=== PATIENT | male | born 1940 | race Caucasian/White ===

== ENCOUNTER 2024-02-27 09:00 | Day surgery (SDC) | payer OTHER, BC ==
[2024-02-27 09:49] LABS: MPV 9.4 fL (7.6-11.3); Platelets 242 thou/uL (152-406)
[2024-02-27 09:54] LABS: PT Prothrombin Time 11.5 SECONDS (9.5-12.5); PTT, Activated Partial Thromb 32.6 SECONDS (24.3-36.9); Protime INR 1.05
[2024-02-27] MEDS: METOPROLOL TAR 50 MG TAB PO ONE (10:25)
[2024-02-27] MEDS: DIAZEPAM 5 MG TABLET ONE (10:37)
[2024-02-27 12:33] VITALS: BMI 33.6
[2024-02-27 13:17] LABS: CSF Glucose 55 mg/dL (40-70)
[2024-02-27 14:25] VITALS: BP 132/83; TEMP 97.2; O2SAT 95
[2024-02-27 15:55] LABS: Appearance CLEAR (CLEAR); Body Fluid Source CSF; Color of Supernate Not Xanthochromic (Not Xantho); Color of fluid Colorless (COLORLESS); Tube # #2
[2024-02-27 15:56] LABS: Body Fluid WBC 1 /mm^3
--- NOTE | 2024-02-28 09:19 | RAD REPORT ---
EXAM DESCRIPTION: RAD - Lumbar Puncture For Dx - 02/27/2024 1:31 pm CLINICAL HISTORY: Dementia/memory loss COMPARISON: None FINDINGS: The risks, benefits and alternatives to the procedure were explained to the patient and in formed consent obtained. The patient was placed prone into the fluoroscopy suite. The skin and subcutaneous tissues were anest hetized with lidocaine. Under fluoroscopic guidance a 22 gauge spinal needle was advanced into the th ecal sac at L2-3 level. 12 cc of CSF was removed and sent to the lab. Patient experienced no immediate complication Fluoroscopy time 0.6 minutes. Zero fluoroscopic spot images obtained IMPRESSION: Lumbar puncture
== END 2024-02-27 14:13 | disposition home or self-care (01) ==
LOC: RAD 09:00 → DS 14:13
PROVIDERS: ATTEND Psychiatry & Neurology Neurology with Special Qualifications in Child Neurology
PROC: 009U3ZX Drainage of Spinal Canal, Percutaneous Approach, Diagnostic (ICD-10-PCS; principal; 2024-02-27)
PROC: B01BZZZ Fluoroscopy of Spinal Cord (ICD-10-PCS; 2024-02-27)
DX: G30.9 Alzheimer's disease, unspecified (principal); I10 Essential (primary) hypertension; E11.9 Type 2 diabetes mellitus without complications; I51.9 Heart disease, unspecified; J84.10 Pulmonary fibrosis, unspecified; J44.9 Chronic obstructive pulmonary disease, unspecified
CPT/HCPCS: 36415; 62328; 77003; 82542; 82945; 84157; 85049; 85610; 85730; 89050

== ENCOUNTER 2024-04-18 09:48 | Inpatient (IN) | payer OTHER, BC ==
--- OUTSIDE RECORDS SUMMARY | 2024-04-18 11:10 | XMS REPORT | Continuity of Care Document ---
Author Name Unknown Address [address] [facility] [address] [place] [address] [facility] Address [address] [facility] [address] [place] [address] Care Team Providers Care Paper Counter Name Role Phone No , Pcp Primary Care Physician Unavailab Allyson Chavez Attending Clinician Unavail able BAYRON SOLO Attending Clinician Unavailable BAYRON SOLO Attending Clinician Unavailable MINA MACDONALD Attending Clinician Unavailable RADIOLOGY Attending Clinician Unavailable Radiology Attending Clinician Unavailable Katlyn HERNANDEZ, Yuriy Hancock Attending Clinician Unavail able Vernon LINDO, Johnny Cesar Attending Clinician [phone] Monisha Giron MD Attending Clinician [phone] MONISHA GIRON Attending Clinician Unavailabl e BAYRON SOLO Admitting Clinician Unavailable KAMALJIT LAMAR Admitting Clinician Unavailab Monisha Hdz MD Admitting Clinician [phone] MONISHA GIRON Admitting Clinician Unavailabl e Payers Payer Name Policy Type Policy Number Effective Date Expirati on Date Source MEDICARE PART A \\T\\ B [id number] 2007 00:00:00 MEDICARE PART A AND B [id number] 2009 00:00:00 [facility] 6 [id number] [facility] Problems Condition Name Condition Details Condition Category Status Onset Date Resolution Date Last Treatment Date Treating Clinician Comments Source Chronic deep vein thrombosis (DVT) of popliteal vein of right lower extremity Chronic deep vein thrombosis (DVT) of popliteal vein of right lower extremity Disease Active 3-04 00:00: 00 [facility] Right leg swelling Right leg swelling Disease Active 3-04 00:00: 00 [facility] Typical atrial flutter Typical atrial flutter Disease Active 2-14 00:00: 00 [facility] Recurrent falls Recurrent falls Disease Active 1-17 00:00: 00 [facility] Elevated brain natriureti c peptide (BNP) level Elevated brain natriureti c peptide (BNP) level Disease Active 1-17 00:00: 00 [facility] Dyslipidem ia Dyslipidem ia Disease Active 1-17 00:00: 00 [facility] Elevated brain natriureti c peptide (BNP) level Elevated brain natriureti c peptide (BNP) level Disease Active 1-17 00:00: 00 [facility] Chronic diastolic heart failure Chronic diastolic heart failure Disease Active 1-17 00:00: 00 [facility] Atrial flutter with rapid ventricula r response Atrial flutter with rapid ventricula r response Disease Active 1-16 00:00: 00 [facility] [id number] Other obesity due to excess calories Problem [facility] 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 Problem [facility] [id number] Other chronic pain Problem [facility] [id number] Essential tremor Problem [facility] [id number] Non-compli ance with treatment Problem [facility] [id number] At high risk for falls Problem [facility] [id number] Gait instabilit y Problem [facility] 32164179 Pulmonary fibrosis Problem [facility] [id number] History of prostate cancer Problem [facility] [id number] Chronic pain syndrome Problem [facility] [id number] Essential hypertensi on Problem [facility] [id number] CORINE (obstructi ve sleep apnea) Problem [facility] [id number] Senile purpura Problem [facility] [id number] Overflow incontinen ce of urine Problem [facility] 37882638 Moderate dementia with mood disturbanc e, unspecifie d dementia type Problem [facility] [id number] Chronic deep vein thrombosis (DVT) of proximal vein of right lower extremity Problem [facility] 820629150 BMI 34.0-34.9, adult Problem [facility] 16840575 Intention tremor Problem [facility] [id number] Paroxysmal atrial fibrillati on Problem [facility] 149825674 Mixed hyperlipid emia Problem [facility] 859295933 Actinic keratosis Problem [facility] 32757813 Age-relate d cataract of both eyes, unspecifie d age-relate d cataract type Problem [facility] 10530661 Bilateral hearing loss, unspecifie d hearing loss type Problem [facility] 39924598 Vitreous degenerati on, unspecifie d laterality Problem [facility] 191837229 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 Problem [facility] 72745784 Opioid use Problem [facility] 49386086 COPD mixed type Problem [facility] 91234548 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 Problem [facility] 46729670 Vitamin D insufficie ncy Problem [facility] [id number] Osteoporos is, postmenopa usal Problem [facility] 13026948 LAMINE (generaliz ed anxiety disorder) Problem [facility] [id number] Macrocytos is Problem [facility] 55599724 Type 2 diabetes mellitus with diabetic cataract, without long-term current use of insulin Problem [facility] [id number] Other secondary osteoarthr itis of both knees Problem [facility] [id number] Chronic anticoagul ation Problem [facility] 810013042 Gastroesop hageal reflux disease without esophagiti s Problem [facility] 33210272 Pulmonary hypertensi on Problem [facility] Allergies, Adverse Reactions, Alerts Allergy Name Allergy Type Status Severity Reaction(s) Onset Date Inactive Date Treating Clinician Comments Source NO KNOWN ALLERGIE S Drug Class Active [facility] Social History Social Habit Start Date Stop Date Quantity Comments Source Sexual orientation [facility] History of tobacco use Cigarette Smoker [facility] History of Social function 2023-11-17 00:00:00 2023-11-17 00:00:00 [facility] Tobacco use and exposure 2023-11-17 00:00:00 2023-11-17 00:00:00 Smokeless tobacco non-user [facility] Sex assigned at 1940 00:00:00 1940 00:00:00 [facility] Smoking Status Start Date Stop Date Source Ex-smoker 2023-11-17 00:00:00 2023-11-17 00:00:00 [facility] Never smoked tobacco [facility] Medications Ordered Medication Name Filled Medication Name Start Date Stop Date Current Medication? Ordering Clinician Indication Dosage Frequency Signature (SIG) Comments Components Source hydroCHLORO thiazide 25 MG hydroCHLORO thiazide 25 MG 02-16 00:00: 00 No 1{table t_in_ e_morni ng} QD hydroCHLOR Othiazide 25 MG DULoxetine HCl 60 MG DULoxetine HCl 60 MG 02-16 00:00: 00 No 1{capsu le} QD DULoxetine HCl 60 MG busPIRone HCl 10 MG busPIRone HCl 10 MG 02-16 00:00: 00 No 1{table t} BID busPIRone HCl 10 MG Ozempic (0.25 or 0.5 MG/DOSE) 2 MG/3ML Ozempic (0.25 or 0.5 MG/DOSE) 2 MG/3ML 02-16 00:00: 00 No Ozempic (0.25 or 0.5 MG/DOSE) 2 MG/3ML Xarelto 10 MG tablet 11-16 09:57: 02 Yes 1 (one) time each day at the same time. [facility] cefdinir 300 mg capsule 10-29 10:50: 14 Yes as directed Orally [facility] Guaifenesin 1,200 mg tablet 10-29 10:50: 14 Yes 1 tablet as needed Orally every 12 hrs [facility] propranoloL 40 mg tablet 10-03 13:40: 24 Yes 40mg Take 1 tablet by mouth in the morning and 1 tablet in the evening. [facility] metFORMIN 500 mg tablet 10-03 13:40: 24 Yes 500mg Take 1 tablet by mouth in the morning. [facility] potassium chloride 10 mEq CR tablet 10-03 13:40: 24 Yes 10meq Take 1 tablet by mouth in the morning. [facility] losartan 25 mg tablet 10-03 13:40: 24 Yes 25mg Take 1 tablet by mouth in the morning. [facility] pregabalin 75 mg capsule 10-03 13:40: 24 Yes 75mg Take 1 capsule by mouth in the morning and 1 capsule in the evening. [facility] furosemide (LASIX) 40 mg tablet 10-03 13:40: 24 Yes 20mg Take 0.5 tablets by mouth in the morning. [facility] pantoprazol e (PROTONIX) 20 mg EC tablet 10-03 13:40: 24 Yes 20mg Take 1 tablet by mouth in the morning. [facility] benzonatate 200 mg capsule 10-03 13:40: 24 Yes 200mg Take 1 capsule by mouth in the morning. [facility] simvastatin 20 mg tablet 10-03 13:40: 24 Yes 20mg Take 1 tablet by mouth at bedtime. [facility] donepezil HCl (DONEPEZIL ORAL) 10-03 13:40: 24 Yes 5mg Take 5 mg by mouth in the morning. [facility] glucosamine /chondroiti n/C/Tripp (GLUCOSAMIN E 1500 COMPLEX ORAL) 10-03 13:40: 24 Yes 1{tbl} Take 1 tablet by mouth in the morning. [facility] [place]-3-DHA -EPA-Fish Oil (FISH OIL) 1,000 mg (120 mg-180 mg) Cap 10-03 13:40: 24 Yes 1{capsu le} Take 1 capsule by mouth in the morning. [facility] metoprolol tartrate (LOPRESSOR) tablet 50 mg 10-03 02:00: 00 Yes 50mg 50 mg, Oral, BID, First dose (after last modificati on) on Fri10/02/23 at 2000, Until Discontinu ed, Routine [facility] metoprolol tartrate (LOPRESSOR) tablet 25 mg 10-02 15:45: 00 10-02 14:57 :00 No 25mg 25 mg, Oral, ONCE, 1 dose, On Fri10/02/23 at 0945, Routine [facility] losartan (COZAAR) tablet 25 mg 10-02 15:00: 00 Yes 25mg 25 mg, Oral, DAILY, First dose on Fri10/02/23 at 0900, Until Discontinu ed, Routine [facility] donepeziL (ARICEPT) tablet 5 mg 10-02 15:00: 00 Yes 5mg 5 mg, Oral, DAILY, First dose on Fri10/02/23 at 0900, Until Discontinu ed [facility] rivaroxaban (XARELTO) 10 mg tablet 10-02 12:20: 49 10-02 00:00 :00 No 10mg Take 1 tablet by mouth in the morning. [facility] atorvastati n (LIPITOR) tablet 10 mg 10-02 03:00: 00 Yes 10mg 10 mg, Oral, QHS, First dose on Fri10/01/23 at 2100, Until Discontinu ed [facility] budesonide- formoteroL (SYMBICORT) 160-4.5 mcg/actuati on inhaler 2 Puff 10-02 02:00: 00 Yes 2{puff} 2 Puff, Inhalation , BID, First dose on Fri10/01/23 at 1999, Until Discontinu ed, Routine [facility] predniSONE (DELTASONE) tablet 20 mg 10-02 02:00: 00 Yes 20mg 20 mg, Oral, BID, First dose on Fri10/01/23 at 1999, Until Discontinu ed, Routine [facility] apixaban (ELIQUIS) tablet 5 mg 10-02 02:00: 00 10-03 00:29 :46 No 5mg 5 mg, Oral, BID, First dose on Fri10/01/23 at 1999, Until Discontinu ed, Routine
Indicatio ns: Non-Valvul ar Atrial Fibrillati on [facility] acute hospital budesonide- formoteroL 160-4.5 mcg/actuati on inhaler 10-02 00:00: 00 Yes [id number] 2{puff} Inhale 2 Puffs in the morning and 2 Puffs in the evening. [facility] metoprolol tartrate 50 mg tablet 10-02 00:00: 00 Yes [id number] 50mg Take 1 tablet by mouth in the morning and 1 tablet in the evening. [facility] albuterol 90 mcg/actuati on inhaler 10-02 00:00: 00 Yes [id number] 2{puff} Inhale 2 Puffs every 6 (six) hours as needed for Wheezing or Shortness of Breath. [facility] Guaifenesin 1,200 mg tablet 10-02 00:00: 00 10-17 05:59 :00 No [id number] 1200mg Take 1 tablet by mouth in the morning and 1 tablet in the evening. Do all this for 14 days. [facility] cefdinir 300 mg capsule 10-02 00:00: 00 10-13 05:59 :00 No [id number] 300mg Take 1 capsule by mouth every 12 (twelve) hours for 10 days. [facility] predniSONE 20 mg tablet 10-02 00:00: 00 10-09 05:59 :00 No [id number] Take 1 tablet by mouth 2 (two) times daily for 2 days, THEN 0.5 tablets 2 (two) times daily for 2 days, THEN 0.5 tablets daily for 2 days. [facility] hospital cefTRIAXone (ROCEPHIN) 1,000 mg in NaCl 0.9% (NS) 100 mL MINI-BAG 10-01 15:00: 00 10-03 17:17 :00 No 1000mg 1,000 mg, IV Piggyback, Q24H ABX, 3 doses, First dose on Fri10/01/23 at 0900, Last dose on Fri10/03/23 at 0900, Administer over 30 Minutes, 100 mL
Reas on for Anti-Infec tive: Documented Infection< br>Documen anai Infection Site: Respirator y
Durat ion of Therapy: 7 days [facility] hospital metoprolol tartrate (LOPRESSOR) tablet 25 mg 10-01 14:15: 00 10-02 14:48 :01 No 25mg 25 mg, Oral, BID, First dose on Fri10/01/23 at 0815, Until Discontinu ed, Routine [facility] NaCl 0.9% (NS) IV infusion 1,000 mL 10-01 02:45: 00 Yes 1000mL at 50 mL/hr, IV Infusion, CONTINUOUS , Starting on Fri09/30/23 at 2044, Until Discontinu ed, Routine [facility] acute hospital ipratropium -albuteroL (DUONEB) 0.5 mg-3 mg(2.5 mg base)/3 mL nebulizer solution 3 mL 10-01 02:41: 16 Yes 3mL 3 mL, Inhalation , Q6HPRN, Starting on Fri09/30/23 at 2040, Until Discontinu ed, Routine, Wheezing [facility] acetaminoph en (TYLENOL) tablet 650 mg 10-01 02:40: 31 Yes 650mg 650 mg, Oral, Q6HPRN, Starting on Fri09/30/23 at 2039, Until Discontinu ed, Routine, Pain (scale 1-3) [facility] NaCl 0.9% (NS) bolus infusion 1,000 mL 10-01 01:30: 00 10-01 02:31 :00 No 1000mL at 999 mL/hr, 1,000 mL, IV Infusion, ONCE, 1 dose, On Fri09/30/23 at 1930, MONAE [facility] acute hospital QUEtiapine (SEROQUEL) 25 mg tablet 2022-09 00:00: 00 Yes 1 tablet at bedtime Orally Once a day for 30 days [facility] hospital naloxone (NARCAN) 4 mg/actuatio n nasal spray 2022-09 00:00: 00 Yes as directed Nasally when needed for 90 days [facility] acute hospital Simvastatin 20 MG Simvastatin 20 MG No 1{table t_in_ e_eveni ng} QD Simvastati n 20 MG Albuterol 90 MCG/ACT Albuterol 90 MCG/ACT No 1{packe t_with_ food} BID Albuterol 90 MCG/ACT Losartan Potassium 25 MG Losartan Potassium 25 MG No 1{table t} QD Losartan Potassium 25 MG Metoprolol Tartrate 50 MG Metoprolol Tartrate 50 MG No 1{table t_with_ food} BID Metoprolol Tartrate 50 MG Benzonatate 200 MG Benzonatate 200 MG No 1{capsu le} TID Benzonatat e 200 MG Lasix 40 MG Lasix 40 MG No 1{table t} QD Lasix 40 MG Acetaminoph en-Codeine 300-30 MG Acetaminoph en-Codeine 300-30 MG No 1{table t_as_ne eded} QID Acetaminop hen-Codein e 300-30 MG Vitamin E 1000 UNIT Vitamin E 1000 UNIT No Vitamin E 1000 UNIT Glucosamine 1500 Complex - Glucosamine 1500 Complex - No Glucosamin e 1500 Complex - Propranolol HCl 40 MG Propranolol HCl 40 MG No 1{table t} TID Propranolo l HCl 40 MG Pregabalin 75 MG Pregabalin 75 MG No 1{capsu le} BID Pregabalin 75 MG Protonix 20 MG Protonix 20 MG No 1{table t} QD Protonix 20 MG Narcan 4 MG/0.1ML Narcan 4 MG/0.1ML No Narcan 4 MG/0.1ML SEROquel 25 MG SEROquel 25 MG No 1{table t_at_be dtime} QD SEROquel 25 MG prednisoLON E 5 MG prednisoLON E 5 MG No QD prednisoLO NE 5 MG Furosemide 40 MG Furosemide 40 MG No 1{table t} QD Furosemide 40 MG Pantoprazol e Sodium 20 MG Pantoprazol e Sodium 20 MG No 1{table t} QD Pantoprazo le Sodium 20 MG predniSONE 5 MG predniSONE 5 MG No 5{ml} QD predniSONE 5 MG Meloxicam 15 MG Meloxicam 15 MG No 1{table t} QD Meloxicam 15 MG Carbidopa-L evodopa 25-100 MG Carbidopa-L evodopa 25-100 MG No Carbidopa- Levodopa 25-100 MG Xarelto 20 MG Xarelto 20 MG No 1{table t_with_ food} QD Xarelto 20 MG Donepezil HCl 10 MG Donepezil HCl 10 MG No 1{table t_at_be dtime} BID Donepezil HCl 10 MG Breo Ellipta 100-25 MCG/ACT Breo Ellipta 100-25 MCG/ACT No 1{puff} QD Breo Ellipta 100-25 MCG/ACT Vital Signs Vital Name Observation Time Observation Value Comments S ource height 2024-02-17 09:20:00 66 [in_i] [facility] weight 2024-02-17 09:20:00 214 [lb_av] [facility] temperature 2024-02-17 09:20:00 98.7 [degF] Com mon [facility] bmi 2024-02-17 09:20:00 34.54 kg/m2 [facility] oximetry 2024-02-17 09:20:00 92 % [facility]mo [facility] respiratory rate 2024-02-17 09:20:00 16 /min [facility] blood pressure systolic 2024-02-17 09:20:00 139 mm[Hg] [facility] blood pressure diastolic 2024-02-17 09:20:00 85 mm[Hg] [facility] height 2023-12-16 11:20:00 66 [in_i] Commo n [facility] weight 2023-12-16 11:20:00 214 [lb_av] [facility] temperature 2023-12-16 11:20:00 98 [degF] [facility] bmi 2023-12-16 11:20:00 34.54 kg/m2 [facility] oximetry 2023-12-16 11:20:00 93 % [facility] respiratory rate 2023-12-16 11:20:00 16 /min [facility] blood pressure systolic 2023-12-16 11:20:00 130 mm[Hg] [facility] blood pressure diastolic 2023-12-16 11:20:00 90 mm[Hg] [facility] Systolic blood pressure 2023-10-29 16:50:00 111 mm[Hg] [facility] Diastolic blood pressure 2023-10-29 16:50:00 75 mm[Hg] [facility] Heart rate 2023-10-29 16:50:00 44 /min [facility] Respiratory rate 2023-10-29 16:50:00 16 /min [facility] Body height 2023-10-29 16:50:[address] [facility] Body weight 2023-10-29 16:50:[address] [facility] BMI 2023-10-29 16:50:00 35.06 kg/m2 [facility] Oxygen saturation in Arterial blood by Pulse oximetry 2023-10-29 16:50:00 98 /min [facility] height 2023-10-28 11:20:00 66 [in_i] [facility]mo [facility] weight 2023-10-28 11:20:00 200 [lb_av] [facility] temperature 2023-10-28 11:20:00 97.7 [degF] Com mon [facility] bmi 2023-10-28 11:20:00 32.28 kg/m2 [facility] oximetry 2023-10-28 11:20:00 92 % [facility] respiratory rate 2023-10-28 11:20:00 17 /min [facility] blood pressure systolic 2023-10-28 11:20:00 116 mm[Hg] [facility] blood pressure diastolic 2023-10-28 11:20:00 80 mm[Hg] [facility] height 2023-10-14 11:00:00 66 [in_i] [facility] weight 2023-10-14 11:00:00 200 [lb_av] [facility] temperature 2023-10-14 11:00:00 98.2 [degF] Com [facility] bmi 2023-10-14 11:00:00 32.28 kg/m2 [facility] oximetry 2023-10-14 11:00:00 94 % [facility] respiratory rate 2023-10-14 11:00:00 16 /min [facility] blood pressure systolic 2023-10-14 11:00:00 124 mm[Hg] [facility] blood pressure diastolic 2023-10-14 11:00:00 78 mm[Hg] [facility] Systolic blood pressure 2023-10-03 17:37:00 135 mm[Hg] [facility] Diastolic blood pressure 2023-10-03 17:37:00 80 mm[Hg] [facility] Heart rate 2023-10-03 17:37:00 86 /min [facility] Body temperature 2023-10-03 17:37:00 36.22 Annie [facility] Respiratory rate 2023-10-03 17:37:00 16 /min [facility] Oxygen saturation in Arterial blood by Pulse oximetry 2023-10-03 17:37:00 92 /min [facility] Body weight 2023-10-03 09:24:[address] [facility] BMI 2023-10-03 09:24:00 33.31 kg/m2 [facility] Body height 2023-10-01 13:24:[address] [facility] height 2023-08-25 11:00:00 66 [in_i] Commo n [facility] weight 2023-08-25 11:00:00 202 [lb_av] [facility] temperature 2023-08-25 11:00:00 98.7 [degF] Com mon [facility] bmi 2023-08-25 11:00:00 32.6 kg/m2 Commo [facility] oximetry 2023-08-25 11:00:00 93 % [facility] respiratory rate 2023-08-25 11:00:00 16 /min [facility] blood pressure systolic 2023-08-25 11:00:00 145 mm[Hg] [facility] blood pressure diastolic 2023-08-25 11:00:00 80 mm[Hg] [facility] Procedures Procedure Date / Time Performed Performing Clinician Source MR BRAIN WO CONTRAST WITH NEUROQUANT 2023-10-23 16:48:41 Requisition, Paper [facility] NOTICE OF BILLING PRACTICES FOR MEDICARE PATIENTS 2023-10-23 15:53:41 Doctor Unassigned, [employer] [facility] NOTICE OF PRIVACY PRACTICES 2023-10-23 15:53:07 Doctor Unassigned, [employer] [facility] NO SHOW OR MISSED APPOINTMENT POLICY ACKNOWLEDGEMENT 2023-10-23 15:52:45 Doctor Unassigned, [employer] [facility] PATIENT FINANCIAL POLICY 2023-10-23 15:52:16 Doctor Unassigned, [employer] [facility] ASSIGNMENT OF BENEFITS 2023-10-23 15:51:50 Docto r Unassigned, [employer] [facility] CONSENT/REFUSAL FOR DIAGNOSIS AND TREATMENT 2023-10-23 15:51:32 Doctor Unassigned, [employer] [facility] MAGNESIUM 2023-10-03 10:27:00 Darian Ruiz [facility] BASIC METABOLIC PANEL (NA, K, CL, CO2, GLUCOSE, BUN, CREATININE, CA) 2023-10-03 10:27:00 Darian Ruiz [facility] CBC WITH DIFF 2023-10-03 10:27:00 Darian Ruiz [facility] CT HEAD WO CONTRAST 2023-10-03 01:22:55 Darian Ruiz [facility] MAGNESIUM 2023-10-02 11:18:00 Darian Ruiz [facility] TROPONIN I 2023-10-02 11:18:00 [facility] BASIC METABOLIC PANEL (NA, K, CL, CO2, GLUCOSE, BUN, CREATININE, CA) 2023-10-02 11:18:00 Darian Ruiz [facility] LIPID PANEL ([id number])(TOTAL CHOLESTEROL, TRIGLYCERIDES, HDL) 2023-10-02 11:18:00 Markos De Leon [facility] CBC WITH DIFF 2023-10-02 11:18[facility] GLYCOS[facility]EMOGLOBIN (A1C) 2023-10-02 11:18:00 Markos De Leon [facility] N-TERMINAL PRO-BNP 2023-10-02 11:18:00 Markos De Leon [facility] XR CHEST 1 VW 2023-10-02 10:37:36 [facility] TRANSTHORACIC ECHO (TTE) COMPLETE 2023-10-01 17:40:00 Monisha Giron [facility] FREE T4 2023-10-01 15:02:00 Monisha Giron [facility] THYROID STIMULATING HORMONE 2023-10-01 15:02:00 Monisha Giron [facility] COMP. METABOLIC PANEL ([id number]) 2023-10-01 15:02:00 Monisha Giron [facility] CBC WITH DIFF 2023-10-01 15:02:00 [facility] PROCALCITONIN 2023-10-01 15:02:00 [facility] NOTICE OF PRIVACY PRACTICES 2023-10-01 02:56:48 Doctor Unassigned, [employer] [facility] ASSIGNMENT OF BENEFITS 2023-10-01 02:55:05 Docto r Unassigned, [employer] [facility] CONSENT/REFUSAL FOR DIAGNOSIS AND TREATMENT 2023-10-01 02:53:26 Doctor Unassigned, [employer] [facility] HB ECG ROUTINE & RHYTHM STRIP 2023-10-01 02:23:15 Johnny Junior [facility] CT MAXILLOFACIAL/MANDIBLE WO CONTRAST 2023-10-01 01:11:46 Johnny Junior [facility] CT HEAD WO CONTRAST 2023-10-01 01:11:46 Johnny Junior [facility] XR CHEST 1 VW 2023-10-01 00:50:54 [facility] LIPASE 2023-10-01 00:49:00 Johnny Junior [facility] TROPONIN I 2023-10-01 00:49:00 Johnny Junior [facility] COMP. METABOLIC PANEL ([id number]) 2023-10-01 00:49:00 Johnny Junior [facility] CBC WITH DIFF 2023-10-01 00:49:00 [facility] N-TERMINAL PRO-BNP 2023-10-01 00:49:00 Johnny Junior [facility] RAPID INFLUENZA A/B 2023-10-01 00:47:00 Johnny Junior [facility] RAPID RSV 2023-10-01 00:47:00 Johnny Junior [facility] COVID-19 (ID NOW RAPID TESTING) 2023-10-01 00:47:00 Johnny Junior [facility] LAB ONLY COVID INTERPRETATION 2023-10-01 00:47:00 Johnny Junior [facility] EKG-12 LEAD 2023-10-01 00:27:55 Johnny Junior [facility] Encounters Start Date/Time End Date/Time Encounter Type Admission Type Attending [facility] Care Facility Care Department Encounter ID Source 2024-02-16 14:48:00 Outpatient Allyson Morrissey [facility] [id number] [facility] 2023-12-17 13:26:00 Outpatient Allyson Morrissey [facility] [id number] [facility] 2023-12-15 08:51:01 Outpatient Allyson Morrissey [facility] [id number] [facility] 2023-11-21 08:46:48 Outpatient BAYRON F[facility] [id number] General acute hospital 2023-10-10 09:05:00 Outpatient Allyson Morrissey STLMLC STLMLC [id number] [facility] 2023-08-25 09:54:02 Outpatient Allyson Morrissey STLMLC STLMLC [id number] [facility] 2024-02-20 00:00:00 2024-02-20 00:00:00 (TEL) STLMLC STLMLC [id number] [facility] 2024-02-17 00:00:00 2024-02-17 00:00:00 OFFICE VISIT ESTAB PT LEVEL 4 STLMLC STLMLC [id number] [facility] 2024-02-17 00:00:00 2024-02-17 00:00:00 (TEL) STLMLC STLMLC [id number] [facility] 2024-02-17 00:00:00 2024-02-17 00:00:00 (TEL) STLMLC STLMLC [id number] [facility] 2024-02-17 00:00:00 2024-02-17 00:00:00 (TEL) STLMLC STLC [id number] [facility] 2024-01-16 07:45:00 2024-01-16 07:45:00 Telephonic Encounter MINA MACDONALD [facility] 1..840.114 350.1.13.58 9.2.7.2.686 [id number] [facility] 2024-01-06 07:45:00 2024-01-06 12:36:08 Telephonic Encounter MINA MACDONALD [facility] 1 1..840.114 350.1.13.58 9.2.7.2.686 [id number] [facility] 2024-01-01 10:00:00 2024-01-01 10:00:00 Outpatient [facility] [id number] [facility] 2023-12-17 00:00:00 2023-12-17 00:00:00 (TEL) [facility] STLC [id number] [facility] 2023-12-17 00:00:00 2023-12-17 00:00:00 (TEL) STLC STLC [id number] [facility] 2023-12-16 00:00:00 2023-12-16 00:00:00 OFFICE VISIT ESTAB PT LEVEL 4 [facility] [id number] [facility] 2023-12-16 00:00:00 2023-12-16 00:00:00 SUB ANNUAL [facility] VISIT [facility] [id number] [facility] 2023-12-15 00:00:00 2023-12-15 00:00:00 Telephone Bayron Solo [facility] 1..840.114 350.1.13.10 4.2.7.2.686 [id number] General acute hospital 2023-12-10 00:00:00 2023-12-10 00:00:00 Telephone Bayron Solo [facility] 1.2.840.114 350.1.13.10 4.2.7.2.686 [id number] General acute hospital 2023-12-09 10:30:00 2023-12-09 10:30:00 Outpatient R [facility] [id number] General acute hospital 2023-12-09 07:45:00 2023-12-09 07:45:00 Outpatient MINA MACDONALD [facility] [id number] [facility] 2023-11-17 09:30:00 2023-11-20 15:47:33 Office Visit MINA MACDONALD [facility] 1.2840.114 350.1.13.58 9.2.7.2.686 [id number] [facility] 2023-11-19 00:00:00 2023-11-19 00:00:00 Telephone Hermes Vital Bayron [facility] 1.2840.114 350.1.13.10 4.2.7.2.686 [id number] General acute hospital 2023-11-06 00:00:00 2023-11-06 00:00:00 Telephone Bayron Solo [facility] 1.2.840.114 350.1.13.10 4.2.7.2.686 [id number] General acute hospital 2023-10-29 11:00:00 2023-10-29 11:25:15 Outpatient R BAYRON SOLO [facility] [id number] General acute hospital 2023-10-29 11:00:00 2023-10-29 11:25:15 Office Visit Justin Soloder [facility] 1.2.840.114 350.1.13.10 4.2.7.2.686 [id number] General acute hospital 2023-10-28 00:00:00 2023-10-28 00:00:00 OFFICE VISIT ESTAB PT LEVEL 4 STLMLC STLC [id number] [facility] 2023-10-24 00:00:00 2023-10-24 00:00:00 (TEL) STLMLC STLMLC [id number] [facility] 2023-10-23 09:54:30 2023-10-23 23:59:00 Outpatient R RADIOLOGY [facility] [id number] General acute hospital 2023-10-23 09:54:30 2023-10-23 23:59:00 Hospital Encounter Radiology [facility] 1.840.114 350.1.13.10 4.2.7.2.686 [id number] General acute hospital 2023-10-22 00:00:00 2023-10-22 00:00:00 (TEL) STLC STLC [id number] [facility] 2023-10-14 00:00:00 2023-10-14 00:00:00 (HOSP F/U) Hospital Follow Up STLC STLC [id number] [facility] 2023-10-06 00:00:00 2023-10-06 00:00:00 Transition of Care Yuriy Potts ..840.114 350.1.13.10 4.2.7.2.686 [id number] General acute hospital 2023-10-06 00:00:00 2023-10-06 00:00:00 (TEL) STLC STLMLC [id number] [facility] 2023-09-30 18:25:00 2023-10-03 13:23:00 Hospital Encounter Johnny Junior Mohammad [facility] 1..840.114 350.1.13.10 4.2.7.2.686 [id number] General acute hospital 2023-09-30 18:25:00 2023-10-03 13:23:00 Inpatient MONISHA [facility] [id number] General acute hospital 2023-08-25 00:00:00 2023-08-25 00:00:00 OFFICE VISIT NEW PT LEVEL 4 STLMLC [facility] [id number] [facility] Results Test Description Test Time Test Comments Results Result Comments Source MR BRAIN WO CONTRAST WITH NEUROQUANT 8 17:10:23 MR BRAIN WO CONTRAST WITH NEUROQUANT COMPARISON: CT head 10/02/2023. HISTORY: Dementia. TECHNIQUE: Multisequence multiplanar MR images of the brain obtainedwithout IV contrast. Quantitative volumetry of the brain was performedusing [employer] ([employer], [place], [place]) software package.The NeuroQuant analysis was based on a sagittal 3D volumetric MPRAGE pulsesequence. FINDINGS: Enlargement of the ventricles and sulci is suggestive of mild cerebralvolume loss. No midline shift, hydrocephalus or pathological extra-axialfluid collection is present. The basal cisterns are unremarkable. No restricted diffusion is present to suggest acute infarct. A fewscattered T2/FLAIR hyperintense foci in the periventricular white matterare nonspecific but likely due to chronic microvascular ischemic changes.No abnormal gradient blooming. Age Related Atrophy report demonstrates: Hippocampal Occupancy Score: 0.57.Hippocampi volume: 5.3 cc, normative percentile of 13.Superior Lateral Ventricles volume: 82.17, normative percentile of 94. Inferior Lateral Ventricles volume: 4.12, normative percentile of 80. The values listed above were within 2 SD of the mean. [facility] CT HEAD WO CONTRAST 2023-09-15 9 07:23:24 Ordering physician: DARIAN RUIZ Indication: Persistent dizziness, suspected fall Comparison: Head CT dated 09/30/2023 Technique: Axial images of the head were performed without administrationof intravenous contrast material. CT scan was performed according to ALARA(as low as reasonably achievable) principles. CT scan was performedaccording to ALARA (as low as reasonably achievable) policy. Findings: No acute intracranial abnormality is appreciated. Specifically,there is no acute intracranial hemorrhage, mass, mass effect, extra-axialfluid collection or hydrocephalus. There is moderate global parenchymalvolume loss, with patchy hypoattenuation in the periventricular whitematter. There is atherosclerotic calcification in the cavernous internalcarotid arteries. The visualized paranasal sinuses are clear. No middle earor mastoid effusion is appreciated. There is no calvarial fracture. Thereare bilateral mildly displaced nasal bone fractures, stable compared to theprevious exam. [facility] XR CHEST 1 VW 2023-09-15 8 12:51:53 Ordering Physician: Monisha Giron History: Pneumonia. Comparison Study: Chest x-ray dated 09/30/2023. Technique: Single view of the chest. The technical quality of the study isadequate. Findings: Lungs: Hypoventilated appearance accentuates the bronchovascular markings.No signs of consolidation, effusion or pneumothorax. Mediastinum: Cardiac and mediastinal silhouettes are unremarkable. Soft tissues and bones: Normal. [id number] 01:46:14* Test Item Value Reference Range Interpretation Comme nts TROPONIN I (test code = 7281329298) 0.005 ng/mL <=0.034 ROSHAN (test code = ROSHAN) Reference (Normal) Range (defined by the 99th percentile reference limit): <= 0.034 ng/mL Note: Cardiac troponin begins to rise 3-4 hours after the onset of ischemia. Repeat in 4-6 hours if the sample was drawn within 3-4 hours of the onset of the symptom and found normal. Diagnosis of myocardial injury is made with acute changes in cTn concentrations with at least one serial sample above the 99th percentile upper reference limit (URL), taken together with the patient's clinical presentation. Biotin has been reported to cause a negative bias, interpret results relative to patient's use of biotin. Lab Interpretation (test code = 81065-7) Normal [facility] [id number] 01:43:52* Test Item Value Reference Range Interpretation Comme nts NT-proBNP (test code = 38489-4) 1950 pg/mL <=125 H ROSHAN (test code = ROSHAN) Positive: Heart Failure Likely Lab Interpretation (test code = 33733-9) Abnormal [facility] PAN[facility] (77155)2023-10-01 01:35:53* Test Item Value Reference Range Interpretation Comme nts NA (test code = 1680999269) 142 mmol/L 135-145 K (test code = 2479811409) 4.2 mmol/L 3.5-5.0 CL (test code = 6661920010) 107 mmol/L 98-108 CO2 TOTAL (test code = 9280327465) 31 mmol/L 23-31 AGAP (test code = 9827064560) 4 2-16 BUN (test code = 9594112772) 29 mg/dL 7-23 H GLUCOSE (test code = 9007297450) 93 mg/dL 70-110 CREATININE (test code = 0915984465) 0.92 mg/dL 0.60-1.25 TOTAL BILI (test code = 0795256933) 0.6 mg/dL 0.1-1.1 CALCIUM (test code = 2122887704) 9.2 mg/dL 8.6-10.6 T PROTEIN (test code = 9524783325) 7.2 g/dL 6.3-8.2 ALBUMIN (test code = 2477094490) 4.1 g/dL 3.5-5.0 ALK PHOS (test code = 6242125821) 109 U/L 34-122 ALTv (test code = 1742-6) 16 U/L 5-50 AST(SGOT) (test code = 9492624533) 24 U/L 13-40 eGFR (test code = 86772-8) 83.6 mL/min/1.73m2 CKD-EPI eGFR (2020). Assuming creatinine has been stable day-to-day for at least three months, the eGFR indicates Category G2 (60 - 89 mL/min/1.73 m2) Lab Interpretation (test code = 97405-8) Abnormal [facility] 01:35:13* Test Item Value Reference Range Interpretation Comme nts LIPASE (test code = 4746778974) 122 U/L 0-220 Lab Interpretation (test cod e = 36061-0) Normal [facility] 1 [id number] 01:32:17Exam: Chest (1 View), 09/30/2023 6:45 PM. Ordering Physician: JOHNNY JUNIOR. History: Cough. Technique: One view of the chest. Comparison: None. Findings: Cardiac silhouette is mildly enlarged. Thoracic aorta is tortuous. There isno pneumothorax. There is no consolidation or pleural effusion. Pleural anddiaphragmatic contours are normal. Mild reticulonodular densities are seenat the lung bases. Osseous structures show degenerative changes.[facility] [id number] 01:32:14CT HEAD WO CONTRAST, CT MAXILLOFACIAL/MANDIBLE WO CONTRAST HISTORY: 83 years-old Male; Head trauma,moderate-severe; c/o weakness, hxof frequent falls COMPARISON: None TECHNIQUE: Axial CT of the head, maxillofacial and mandible without IVcontrast was performed. Coronal and sagittal reformatted images weregenerated. FINDINGS: The ventricles and cerebral sulci are normal in caliber and configuration.No hydrocephalus, midline shift or pathological extra-axial fluidcollection is present. The basal cisterns are unremarkable. There is no acute intracranial hemorrhage or significant mass effect.Bilateral basal ganglia hypodensities favor remote lacunar infarcts.Periventricular and deep matter hypodensities are nonspecific but likelyrepresent chronic small vessel ischemic changes. The cespedes-white m atterdifferentiation is preserved. The mastoid air cells and paranasal air sinuses are clear. The calvariumand central skull base are unremarkable. CT MAXILLOFACIAL/MANDIBLE FINDINGS: Nasal bone fracture with overlying soft tissue swelling favors chronic. Thenasal septum is intact. The frontal processes of the maxilla are intact. The orbits, globes and other intraorbital structures are unremarkable. The maxilla and maxillary sinus march are intact. The pterygoid plates areintact. The zygomatic arches are intact. Dental amalgam streak artifact is noted. The mandible, temporomandibularjoints and dentition are otherwise unremarkable.[facility] MAXILLOFACIAL/MANDIBLE WO [id number] 01:32:14CT HEAD WO CONTRAST, CT MAXILLOFACIAL/MANDIBLE WO CONTRAST HISTORY: 83 years-old Male; Head trauma, moderate-severe; c/o weakness, hxof frequent falls COMPARISON: None TECHNIQUE: Axial CT of the head, maxillofacial and mandible without IVcontrast was performed. Coronal and sagittal reformatted images weregenerated. FINDINGS: The ventricles and cerebral sulci are normal in caliber and configuration.No hydrocephalus, midline shift or pathological extra-axial fluidcollection is present. The basal cisterns are unremarkable. There is no acute intracranial hemorrhage or significant mass effect.Bilateral basal ganglia hypodensities favor remote lacunar infarcts.Periventricular and deep matter hypodensities are nonspecific but likelyrepresent chronic small vessel ischemic changes. The cespedes- white matterdifferentiation is preserved. The mastoid air cells and paranasal air sinuses are clear. The calvariumand central skull base are unremarkable. CT MAXILLOFACIAL/MANDIBLE FINDINGS: Nasal bone fracture with overlying soft tissue swelling favors chronic. Thenasal septum is intact. The frontal processes of the maxilla are intact. The orbits, globes and other intraorbital structures are unremarkable. The maxilla and maxillary sinus march are intact. The pterygoid plates areintact. The zygomatic arches are intact. Dental amalgam streak artifact is noted. The mandible, temporomandibularjoints and dentition are otherwise unremarkable.[facility] WITH [id number] 01:23:49* Test Item Value Reference Range Interpretation Comme nts WBC (test code = 6690-2) 9.09 See_Comment [Automated [employer]] The system which generated this result transmitted reference range: 4.20 - 10.70 10*3/?L. The reference range was not used to interpret this result as normal/abnormal. RBC (test code = 789-8) 4.60 See_Comment [Automated [employer]] The system which generated this result transmitted reference range: 4.26 - 5.52 10*6/?L. The reference range was not used to interpret this result as normal/abnormal. HGB (test code = 718-7) 15.4 g/dL 12.2-16.4 HCT (test code = 4544-3) 46.9 % 38.4-49.3 MCV (test code = 787-2) 102.0 fL 81.7-95.6 H MCH (test code = 785-6) 33.5 pg 26.1-32.7 H MCHC (test code = 786-4) 32.8 g/dL 31.2-35.0 RDW-SD (test code = 73145-1) 52.6 fL 38.5-51.6 H RDW-CV (test code = 788-0) 13.9 % 12.1-15.4 PLT (test code = 777-3) 222 See_Comment [Automated messa ge] The system which generated this result transmitted reference range: 150 - 328 10*3/?L. The reference range was not used to interpret this result as normal/abnormal. MPV (test code = 98935-8) 11.8 fL 9.8-13.0 NRBC/100 WBC (test code = 8592658505) 0.0 See_Comment [Automated [employer]] The system which generated this result transmitted reference range: 0.0 - 10.0 /100 WBCs. The reference range was not used to interpret this result as normal/abnormal. NRBC x10^3 (test code = 8931781400) See_Comment [Automated [employer] ge] The system which generated this result transmitted reference range: 10*3/?L. The reference range was not used to interpret this result as normal/abnormal. GRAN MAT (NEUT) % (test code = 770-8) 71.0 % IMM GRAN % (test code = 4862288912) 0.20 % LYMPH % (test code = 736-9) 14.2 % MONO % (test code = 5905-5) 13.1 % EOS % (test code = 713-8) 0.8 % BASO % (test code = 706-2) 0.7 % GRAN MAT x10^3(ANC) (test code = 4026101824) 6.46 10*3/uL 1.99-6.95 IMM GRAN x10^3 (test code = 8265113909) 0.00-0.06 LYMPH x10^3 (test code = 731-0) 1.29 10*3/uL 1.09-3.23 MONO x10^3 (test code = 742-7) 1.19 10*3/uL 0.36-1.02 H EOS x10^3 (test code = 711-2) 0.07 10*3/uL 0.06-0.53 BASO x10^3 (test code = 704-7) 0.06 10*3/uL 0.01-0.09 Lab Interpretation (test code = 05707-6) Abnormal [facility]MO[facility] [id number] 00:00:00* Test Item Value Reference Range Interpretation Comme nts A1C (test code = 4548-4) 5.6 Consult Notes Date/Time Note Provider Source 2023-10-01 11:24:13 Associated Order(s): CONSULT ADULT PHYSICAL THERAPY Patient agreeable to working with physical therapy. Patient met semi reclined in bed. Recommend nursing staff utilize min A to safely assist patient with mobility out of the bed or chair. PHYSICAL THERAPY EVALUATION Consult received, chart reviewed and evaluation complete this date. Patient is referred to PT for evaluation and treatment. Patient is a 83 year old male who presents to hospital for Atrial flutter with rapid ventricular response [I48.92] . Discharge Recommendations: Therapy Needs and Potential: Patient would benefit from continued physical therapy services to address: decline in bed mobility decline in transfers decline in gait and/or balance decreased strength decreased endurance Patient demonstrates good potential to improve and meet therapy goals with further physical therapy services. Pt stated he has been receiving home health PT. Challenges to Home Transition: increased risk of falls decreased caregiver availability decreased safety awareness Equipment recommendations: Patient has or access to necessary equipment Current Functional Status and/or Treatment: AM-PAC 6 Clicks (Raw Score 0=Dependent, 24=Independent; Low function Raw Score 0= Dependent, 32=Independent): Raw Score - Basic Mobility : 17 T-Scale Score - Basic Mobility : 39.67 Bed Mobility: Rolling: Supervision Bridging: Supervision Sitting balance Good Scooting to edge of bed: Supervision Transfers: Sit to stand: Minimal Assistance using Rolling Walker Stand to sit: Minimal Assistance using Rolling Walker Ambulation: Assisted patient with ambulation as follows: 5 feet using Rolling Walker and Minimal Assistance. Therapeutic exercise: patient educated in Fall prevention and General strengthening. After session, patient semi reclined in bed. Call button provided. PLAN OF CARE: While in the hospital, PT will follow patient at least 2 times per week,once or twice a day, per patient's tolerance and needs. See below for complete details. Admit Date: 09/30/2023 Hospital Diagnosis:Atrial flutter with rapid ventricular response [I48.92] PT Diagnosis: Difficulty walking, Weakness, and Malaise/fatigue Weight Bearing Precaution: WBAT General Precautions: Fall,IV Bracing/Cast present or required:N/A PMH: No past medical history on file. PSH: No past surgical history on file. Prior Living Situation: lives with their spouse and in a house DME: Rolling Walker Prior level of Mobility: ambulates with Rolling Walker , ambulates with physical assistance, requires assistance with transfers, requires assistance with bed mobility Suspected ischemic or hemorraghic stroke:No Subjective: Pt states he has been having falls and just "trips". He states he is able to use a walker and take a few steps around home. He does have dementia. He stated his is his legal counsel. Patient/Family Goals: Be able to go home. Patient/Family verbalizes understanding of condition: Yes PAIN: denies pain before and after session COMMUNICATION Primary Language: Faroese Able to Verbalize needs: Yes Vision:good; no issues reported Hearing:good; no issues reported ORIENTATION/COGNITION: Oriented to: person, place, and situation Awake: Yes Alert: Yes Dizzy: No Follows Commands: Yes 1-Step Yes Multi-Step Yes Inconsistent: No NEUROLOGICAL Light Touch: within functional limits bilateral LE BALANCE: Sitting: Static: Good Dynamic: Good Standing: Static: Fair+ Dynamic: Fair RANGE OF MOTION: within functional limits bilateral LE STRENGTH: 4/5 (Good), bilateral LE ENDURANCE: Fair SKIN INTEGRITY: intact, PROBLEM LIST: Decline in bed mobility, Decline in gait, Decline in transfers, Decreased strength, Decreased endurance, and Decreased balance ASSESSMENT: Patient is a 83 year old male seen secondary to the above listed diagnosis. Patient would benefit from continued PT to address the above listed deficits to maximize independence and safety with functional mobility. Rehabilitation Potential: good Goals: The following goals are to maximize independence and safety with functional mobility to eventually return to prior living situation and prior functional status. Upon discharge, patient and/or family will demonstrate the followin. Rolling: Independent Bridging: Independent Sitting balance Good Scooting to edge of bed: Independent 2. Sit to stand: Independent using Rolling Walker Stand to sit: Independent using Rolling Walker 3. Minimal Assistance with ambulation, Feet: 10 using least assistive device. 4. Demonstrate or verbalize understanding of home exercise program in order to continue with their rehab on their own. Treatment Plan: Gait training, Therapeutic exercise, Transfer training, Balance training, Bed mobility training, and Safety education, patient/caregiver education PATIENT EDUCATION: Patient provided with preferred teaching of verbal information on role of PT, plan of care. Shows readiness to learn. Verbal instruction teaching provided. Individual is able to read and verbalizes understanding of teaching provided and accurately returns demonstration of skill. Total Time Tx Codes in Minutes: 15 min Total Treatment Time in Minutes: 25 min Kanchan Alexander PT [place] PT License [id number] [facility] Rehabilitation Services Department (phone) (fax) CHARGE CARD CLERK Kanchan Alexander PT [facility] 2023-10-01 08:33:57 Associated Order(s): CONSULT CARDIOLOGY [facility] Cardiology Consult Note Patient: Koffi Dasilva Date of : 1940 Date of service: 10/01/2023 Primary Care Physician: Allyson Morrissey CHIEF COMPLAINT: Chief Complaint Patient presents with MALAISE HISTORY OF PRESENT ILLNESS: Koffi Dasilva is a 83 year old male presented to the ER for evaluation for recurrent falls. History from patient. Patient seen and examined in the room. Pertinent cardiac related history reviewed from chart Presented to ER with generalized weakness and cough and congestion. Patient was brought in by EMS because of recurrent falls. He has had frequent falls to the point where EMS noted him fairly well as they were called out frequently for lift assist. However, he was much weaker than normal so the family brought him into the emergency room. In the emergency room patient was noted to be in atrial flutter but his rate was controlled to 82. Patient does have a history of dementia. The patient's able to communicate fairly well but unable to give prior cardiac history. STRAUSS NYHA class II. Not very active at baseline. No chest pain at rest. No PND or orthopnea. No pedal edema. No exertional palpitations or palpitations at rest. No syncopal attacks. Prior history of hypertension, atrial fibrillation, dementia, diabetes mellitus, dyslipidemia noted. Previous Cardiac Studies: IMAGING - I personally reviewed, pertinent results as below: EKG 09/30/2023 reviewed shows atrial flutter with variable block. Narrow QRS complex, nonspecific ST-T changes noted. Chest x-ray 09/30/2023 reviewed shows reticulonodular opacities. PAST MEDICAL HISTORY No past medical history on file. No past surgical history on file. No family history on file. SOCIAL HISTORY Social History Socioeconomic History Marital status: ALLERGIES No Known Allergies MEDICATIONS There are no discharge medications for this patient. Current Facility-Administered Medications: apixaban (ELIQUIS) tablet 5 mg, 5 mg, Oral, BID, Monisha Giron MD cefTRIAXone (ROCEPHIN) 1,000 mg in NaCl 0.9% (NS) 100 mL MINI-BAG, 1,000 mg, IV Piggyback, Q24H ABX, Monisha Giron MD metoprolol tartrate (LOPRESSOR) tablet 25 mg, 25 mg, Oral, BID, Monisha Giron MD predniSONE (DELTASONE) tablet 20 mg, 20 mg, Oral, BID, Monisha Giron MD acetaminophen (TYLENOL) tablet 650 mg, 650 mg, Oral, Q6HPRN, Monisha Giron MD, 650 mg at 09/30/232049 FENTanyl PF (SUBLIMAZE (PF)) injection 25 mcg, 25 mcg, Slow IV Push, Q4HPRN, Monisha Giron MD HYDROcodone-acetaminophen (NORCO 5) 5-325 mg tablet 1 tablet, 1 tablet, Oral, Q6HPRN, Monisha Giron MD ipratropium-albuteroL (DUONEB) 0.5 mg-3 mg(2.5 mg base)/3 mL nebulizer solution 3 mL, 3 mL, Inhalation, Q6HPRN, Monisha Giron MD NaCl 0.9% (NS) IV infusion 1,000 mL, 1,000 mL, IV Infusion, CONTINUOUS, Monisha Giron MD, Last Rate: 50 mL/hr at 10/01/23 0720, Rate Verify at 10/01/23 0720 ondansetron (ZOFRAN (PF)) injection 4 mg, 4 mg, Slow IV Push, Q6HPRN, Monisha Giron MD REVIEW OF SYSTEMS: Comprehensive 10-system review was conducted and were negative except for what's noted in the HPI. The following systems were reviewed: Constitutional, cardiovascular, respiratory, gastrointestinal, genitourinary, musculoskeletal, neurologic, psychiatric, endocrinological, and hematological. PHYSICAL EXAMINATION: Vitals: 10/01/23 0400 10/01/23 0418 10/01/23 0724 10/01/23 0818 BP: (!) 157/96 (!) 169/103 Pulse: 83 94 Resp: Temp: 36.6 ?C (97.8 ?F) 36.8 ?C (98.2 ?F) TempSrc: SpO2: 90% 91% Weight: 98 kg (216 lb) 98 kg (216 lb) Height: 1.702 m (5' 7") General: no apparent distress HEENT: normocephalic atraumatic Neck: supple, no lymphadenopathy, no bruits, no JVD Lungs: clear to auscultation bilaterally. No wheezes or rhonchi. No increased work of breathing. Cardio: Irregular rate and rhythm, S1&S2 normal, no murmurs, rubs or gallops Abdomen: soft; non-tender; non-distended; normoactive bowel sounds. : not examined Rectal: not examined Extremities: no clubbing, cyanosis, or edema. Skin: no rashes, no visible lesions. Neuro: no gross focal deficits LABS - Reviewed pertinent labs as below: CBC BMP PT/INR WBC (10*3/?L) Date Value 09/30/2023 9.09 NA (mmol/L) Date Value 09/30/2023 142 No results found for: "PT" PLT (10*3/?L) Date Value 09/30/2023 222 K (mmol/L) Date Value 09/30/2023 4.2 No results found for: "PTINR" HGB (g/dL) Date Value 09/30/2023 15.4 BUN (mg/dL) Date Value 09/30/2023 29 (H) HCT (%) Date Value 09/30/2023 46.9 CREATININE (mg/dL) Date Value 09/30/2023 0.92 LIPID PROFILE GLUCOSE (mg/dL) Date Value 09/30/2023 93 No results found for: "CHOL" TSH No results found for: "LDL" No results found for: "TSH" CARDIAC ENZYMES No results found for: "HDL" No results found for: "CK" No results found for: "TRIG" LFTs No results found for: "CKMB" AST(SGOT) (U/L) Date Value 09/30/2023 24 TROPONIN I (ng/mL) Date Value 09/30/2023 0.005 ALTv (U/L) Date Value 09/30/2023 16 No results found for: "BNP" No results found for: "LDL" Recent Labs 09/30/23 1849 TROPNI 0.005 There are no current results on file for these tests and/or test for 1 year. No results found for: "LDL" NT-proBNP (pg/mL) Date Value 09/30/2023 1,950 (H) ASSESSMENT/PLAN Principal Problem: Atrial flutter with rapid ventricular response Active Problems: Recurrent falls Essential hypertension Type 2 diabetes mellitus with other specified complication Dyslipidemia Elevated brain natriuretic peptide (BNP) level Chronic diastolic heart failure Atrial flutter: Predominantly rate controlled. Home dose of Xarelto 10 mg daily noted. Continue with Eliquis 5 mg twice daily here in the hospital. Continue telemetry monitoring. Continue with Lopressor 25 twice daily. Home dose of Inderal noted. Recommend Serial trop X 2, Echo to assess to EF and wall motion changes. Continue telemetry monitoring Recent Labs 09/30/23 1849 TROPNI 0.005 Elevated NT-proBNP: Likely chronic diastolic heart failure. Clinically does not appear to be volume overload. Recommend Serial trop X 2, Echo to assess to EF and wall motion changes. Home dose of Lasix 20 mg daily noted. May restart home dose of Lasix 20 daily. Recommend to keep potassium more than 4 magnesium more than 2. NT-proBNP (pg/mL) Date Value 09/30/2023 1,950 (H) Recurrent falls: Recommended orthostatic vitals. Recommended to outpatient EP evaluation for consideration for Watchman device due to recurrent falls in the setting of atrial flutter. Hypertension: Continue with Lopressor 25 twice daily along with losartan 25 daily. Recommended orthostatic blood pressure. Recommend restarting blood pressure less than 150/90. Dyslipidemia: Continue with Lipitor 10 mg daily. T2DM: Rx as per primary team. Rx plan discussed with hospitalist team. No family at bedside. No results found for: "LDL" Last Two A1C Results (UTMB/LC, POCT, QUEST) There are no current results on file for these tests and/or test for 1 year. Invalid input(s): "[id number]" Thank you for allowing us to participate in the care of Koffi Dasilva. If you have any questions or concerns please feel free to call our office at [phone]. I would be happy to be of further assistance for Koffi Dasilva wellbeing. Voice recognition software has been used to create portions of this document. An attempt to proofread has been made to minimize errors. Please do not hesitate to call with any questions. Janak De Leon MD Dry Cleaning Manager, Division of Cardiology [facility] - Health History and Physical Notes Date/Time Note Provider Source 2023-09-30 20:36:56 [facility] Hospitalist Admission H&P Date of Service: 09/30/2023 CHIEF COMPLAINT: Patient with complaints of generalized weakness and cough and congestion. HISTORY OF PRESENT ILLNESS Koffi Dasilva is a 83 year old male who presents with generalized weakness and cough and congestion. Patient was brought in by EMS because of recurrent falls. He has had frequent falls to the point where EMS noted him fairly well as they were called out frequently for lift assist. However, he was much weaker than normal so the family brought him into the emergency room. In the emergency room patient was noted to be in atrial flutter but his rate was controlled to 82. Patient does have a history of dementia. The patient's able to communicate fairly well. His chest x-ray was suggestive of reticulonodular opacities suggestive of pneumonia. CT of the head and face did not reveal any acute fractures. Patient will be admitted to the hospital for further evaluation. Patient is weak but he is able to try to help himself. He was able to scoot himself from the stretcher to the bed stretcher. Patient does not have a lot of records at this hospital. Patient is very difficult to understand but he does appear to be oriented to person and place. He knows his name and his date of . He knows how old he is. He knows he is in [facility]. He knows the room number as well. Patient will be admitted to the hospital for further evaluation. PAST MEDICAL HISTORY Alzheimer's dementia Atrial flutter PAST SURGICAL HISTORY No past surgical history on file. ALLERGIES No Known Allergies MEDICATIONS Current home medication list reviewed: Patient's Medications No medications on file FAMILY HISTORY No family history on file. SOCIAL HISTORY Social History Socioeconomic History Marital status: REVIEW OF SYSTEMS 10 systems negative except per HPI PHYSICAL EXAMINATION BP (!) 144/87 | Pulse 85 | Temp 38.1 ?C (100.6 ?F) (Oral) | Resp 18 | Ht 1.702 m (5' 7") | Wt 98 kg (216 lb) | SpO2 93% | BMI 33.83 kg/m? General: No acute distress HEENT: Normal oral mucosa, anicteric sclerae, some facial trauma Cardiovascular: Regularly irregular Lungs: End expiratory wheezing with some upper airway congestion Abdomen: Soft, NTND Musculoskeletal: No synovitis, normal muscle mass Genitourinary: Normal Skin: Bruising Extremities: No clubbing, no cyanosis, minimal edema Neuro: AAOx3, no focal deficits Psych: Normal affect LABS - reviewed pertinent labs as below: CBC BMP PT/INR WBC (10*3/?L) Date Value 09/30/2023 9.09 NA (mmol/L) Date Value 09/30/2023 142 No results found for: "PT" RBC (10*6/?L) Date Value 09/30/2023 4.60 K (mmol/L) Date Value 09/30/2023 4.2 No results found for: "PTINR" PLT (10*3/?L) Date Value 09/30/2023 222 CALCIUM (mg/dL) Date Value 09/30/2023 9.2 HGB (g/dL) Date Value 09/30/2023 15.4 CL (mmol/L) Date Value 09/30/2023 107 aPTT HCT (%) Date Value 09/30/2023 46.9 BUN (mg/dL) Date Value 09/30/2023 29 (H) No results found for: "APTTPAT" CREATININE (mg/dL) Date Value 09/30/2023 0.92 IMAGING - reviewed, pertinent results as below: Hospital Encounter on 09/30/23 CT HEAD WO CONTRAST Narrative CT HEAD WO CONTRAST, CT MAXILLOFACIAL/MANDIBLE WO CONTRAST HISTORY: 83 years-old Male; Head trauma, moderate-severe; c/o weakness, hx of frequent falls COMPARISON: None TECHNIQUE: Axial CT of the head, maxillofacial and mandible without IV contrast was performed. Coronal and sagittal reformatted images were generated. FINDINGS: The ventricles and cerebral sulci are normal in caliber and configuration. No hydrocephalus, midline shift or pathological extra-axial fluid collection is present. The basal cisterns are unremarkable. There is no acute intracranial hemorrhage or significant mass effect. Bilateral basal ganglia hypodensities favor remote lacunar infarcts. Periventricular and deep matter hypodensities are nonspecific but likely represent chronic small vessel ischemic changes. The cespedes-white matter differentiation is preserved. The mastoid air cells and paranasal air sinuses are clear. The calvarium and central skull base are unremarkable. CT MAXILLOFACIAL/MANDIBLE FINDINGS: Nasal bone fracture with overlying soft tissue swelling favors chronic. The nasal septum is intact. The frontal processes of the maxilla are intact. The orbits, globes and other intraorbital structures are unremarkable. The maxilla and maxillary sinus march are intact. The pterygoid plates are intact. The zygomatic arches are intact. Dental amalgam streak artifact is noted. The mandible, temporomandibular joints and dentition are otherwise unremarkable. Impression No acute intracranial hemorrhage or mass effect. No acute facial fracture. Preliminary Report Dictated by Resident: Aydin Land I, Glenn Duffy MD., have reviewed this study and agree with the above report. CT MAXILLOFACIAL/MANDIBLE WO CONTRAST Narrative CT HEAD WO CONTRAST, CT MAXILLOFACIAL/MANDIBLE WO CONTRAST HISTORY: 83 years-old Male; Head trauma, moderate-severe; c/o weakness, hx of frequent falls COMPARISON: None TECHNIQUE: Axial CT of the head, maxillofacial and mandible without IV contrast was performed. Coronal and sagittal reformatted images were generated. FINDINGS: The ventricles and cerebral sulci are normal in caliber and configuration. No hydrocephalus, midline shift or pathological extra-axial fluid collection is present. The basal cisterns are unremarkable. There is no acute intracranial hemorrhage or significant mass effect. Bilateral basal ganglia hypodensities favor remote lacunar infarcts. Periventricular and deep matter hypodensities are nonspecific but likely represent chronic small vessel ischemic changes. The cespedes-white matter differentiation is preserved. The mastoid air cells and paranasal air sinuses are clear. The calvarium and central skull base are unremarkable. CT MAXILLOFACIAL/MANDIBLE FINDINGS: Nasal bone fracture with overlying soft tissue swelling favors chronic. The nasal septum is intact. The frontal processes of the maxilla are intact. The orbits, globes and other intraorbital structures are unremarkable. The maxilla and maxillary sinus march are intact. The pterygoid plates are intact. The zygomatic arches are intact. Dental amalgam streak artifact is noted. The mandible, temporomandibular joints and dentition are otherwise unremarkable. Impression No acute intracranial hemorrhage or mass effect. No acute facial fracture. Preliminary Report Dictated by Resident: Aydin Land I, Glenn Duffy MD., have reviewed this study and agree with the above report. XR CHEST 1 VW Narrative Exam: Chest (1 View), 09/30/2023 6:45 PM. Ordering Physician: JOHNNY JUNIOR. History: Cough. Technique: One view of the chest. Comparison: None. Findings: Cardiac silhouette is mildly enlarged. Thoracic aorta is tortuous. There is no pneumothorax. There is no consolidation or pleural effusion. Pleural and diaphragmatic contours are normal. Mild reticulonodular densities are seen at the lung bases. Osseous structures show degenerative changes. Impression Impression: Diffuse vascular reticulonodular interstitial opacities, which can be seen with infectious bronchiolitis or atypical infection. No consolidation. RL: [id number] End of Report SSMENT: 1. Recurrent falls 2. History of dementia 3. Bilateral pneumonia 4. Atrial flutter 5. Generalized weakness PLAN: 1. Patient with recurrent falls and generalized weakness; will get physical therapy evaluation. Will probably need rehab placement. Patient has had multiple injuries, but likely he has not required any aggressive surgical intervention after 1 of these falls. But at his age and with his weakness my concern is that if he does have a significant fall with a fracture of a big bone that would increase his risk of mortality. Patient needs to develop better coordination and build the strength out prior to going home 2. History of dementia; continue with supportive care and fall precautions 3. History of atrial flutter; continue with anticoagulation and medication for rate control. Patient may have to stop Eliquis if he continues to have weakness as the risk of bleeding will outweigh the benefits of stroke reduction. 4. History of bilateral pneumonia; continue with antibiotics and await for culture results. Repeat chest x-ray if needed. DVT prophylaxis: enoxaparin Stress ulcer prophylaxis: pantoprazole Code status: FULL Advanced Care Planning (Z71.89) Above assessment and plan discussed at length with patient, patient expressed full understanding. Questions and concerned addressed. Surrogate decision maker: NO Level of care expected after discharge: SNF Time spent: 3 minutes discussing the advanced care plan Smoking Cessation: (Z71.6) Tobacco user?: NO Patient will require inpatient stay of 2 midnights or more given high risk of morbidity and mortality. [place] FAMILY SERVICES ASSISTANT was verified during stay Monisha Giron MD CHARGE CARD CLERK [facility] Notes Date/Time Note Provider Source 2023-12-17 10:09:31 Hermes Vital Bayron Fri12/17/2023 10:07 AM We faxed it to the pain management office Thanks SONI Annemarie Casiano LVN [facility] 2023-12-16 10:17:[address] Meier's office. Requested front desk team member to please refax to [phone]. Tyrell Fish RN [facility] 2023-12-15 16:16:51 Koffi Dasilva is a 83 year old male Pts calling to request cardiac clearance be faxed over to for injections in the back. Please advise. Ph. [phone] Jeffrey Dodd [facility] 2023-12-10 11:01:51 Good morning. We have received notice that patient wishes to cancel his Ablation procedure at this time From: Angela Pro [email or web address]> Sent: Sunday, December 10, 2023 10:53 AM To: Starr Steel <[email or web address]>; Pat Burkett <[email or web address]>; Joseph Mckeon <[email or web address]> Cc: Mike Saucedo <[email or web address]>; Brittani Damon <[email or web address]> Subject: Koffi Dasilva RE: ( Koffi Dasilva) scheduled for (12/16/2023) exam (a flutter ablation) The patient has contacted our office to request a cancellation/reschedule of the above referenced scheduled exam due to: ___ Financial Difficulty ___ Transportation X Personal Reason: Patient states he is not ready to go through this process at this time. He is asking to cancel. ___ Other Condition We have instructed the patient to contact the clinic to discuss this matter directly with you or your staff in the event there are medical reasons that should be considered before making a final decision. I have canceled the procedure for now. Thank you. Starr Starr Steel [facility] 2023-11-19 16:34:56 Lab orders placed [facility] 2023-11-19 15:58:50 Good afternoon. Please preop lab orders for cath procedure. Thank you. Starr CHARGE CARD CLERK Starr Steel [facility] 2023-11-06 14:29:56 Called patient to schedule, pt asked for a ep doc recommendation someone in [facility] or [place]. Pt is not familiar with the area and does not want to travel to [place] or [place] for the procedure. Emmanuel [facility] 2023-10-06 14:11:53 TRANSITIONAL CARE MANAGEMENT ASSESSMENT 10/06/2023 Koffi Dasilva [id number] Koffi Dasilva is a 83 year old /White male was admitted on 09/30/23 to [facility] SURG. He was discharged on 10/03/23 with discharge disposition of HR- Routine Discharge. Admitting Physician: Monisha Giron Discharge Diagnosis: Debility/weakness Mechanical falls Atypical PNA Hx dementia Atrial flutter with RVR DM2 Hx CHF Hx COPD No linked episodes TCM [id number] outreach documentation: Discharge Assessment Chart Assessed: 10/06/23 Chart Reviewed - Post Discharge Call Deferred due to Change in Discharge Status.: Discharged to SNF (SNF location: [place] [address] () [phone] (F) [phone]) TCM Outreach Completed: 10/06/23 Future Appointments: Future Appointments Provider Department Dept Phone 10/29/2023 11:00 AM Bayron Solo MD [facility] [phone] Potts RN [facility] 2023-10-03 11:47:57 Summary: report Called [facility] to give report but no answer. Escalated to Rena to have [facility] call back for report. ETA for transportation is one hour. Burkett RN [facility] 2023-10-03 11:44:44 Problem: Falls, Risk of Goal: Absence of falls Outcome: Resolved Problem: Venous Thromboembolism, (actual or risk of) Goal: Absence of venous thromboembolism (Risk) Outcome: Resolved Goal: Prevent further complications associated with VTE diagnosis (Actual) Outcome: Resolved Problem: Pain Goal: Control of pain at or below patient's documented comfort goal Outcome: Resolved Goal: Reduction in pain sensation Outcome: Resolved CHARGE CARD CLERK [facility] 2023-10-03 11:14:09 Problem: Falls, Risk of Goal: Absence of falls Outcome: Adequate for discharge Problem: Skin integrity Impaired (Risk or Actual) Goal: Wound healing Outcome: Adequate for discharge Goal: Prevention of new skin breakdown Outcome: Adequate for discharge Problem: Venous Thromboembolism, (actual or risk of) Goal: Absence of venous thromboembolism (Risk) Outcome: Adequate for discharge Goal: Prevent further complications associated with VTE diagnosis (Actual) Outcome: Adequate for discharge Problem: Pain Goal: Control of pain at or below patient's documented comfort goal Outcome: Adequate for discharge Goal: Reduction in pain sensation Outcome: Adequate for discharge Problem: Discharge Planning Goal: Adequate for discharge Outcome: Adequate for discharge Goal: Effective communication Outcome: Adequate for discharge Patel RN [facility] 2023-10-03 01:45:23 Problem: Falls, Risk of Goal: Absence of falls Outcome: Progressing as expected Problem: Skin integrity Impaired (Risk or Actual) Goal: Wound healing Outcome: Progressing as expected Goal: Prevention of new skin breakdown Outcome: Progressing as expected Problem: Venous Thromboembolism, (actual or risk of) Goal: Absence of venous thromboembolism (Risk) Outcome: Progressing as expected Goal: Prevent further complications associated with VTE diagnosis (Actual) Outcome: Progressing as expected Problem: Pain Goal: Control of pain at or below patient's documented comfort goal Outcome: Progressing as expected Goal: Reduction in pain sensation Outcome: Progressing as expected Problem: Discharge Planning Goal: Adequate for discharge Outcome: Progressing as expected Goal: Effective communication Outcome: Progressing as expected Escamilla RN [facility] 2023-10-02 13:13:00 Upon arrival, I found the patient on the floor. Patient is alert and oriented x 3 which is his baseline. After assessing, I noticed a skin tear on the left elbow and right forearm the patient reported no head impact. Informed Piotr,Wylan HARNESS AND BAG INSPECTOR. COA at bedside and charge nurse aware. With the help of other co workers we returned the patient to the bed. Vitals remain stable. Dr. Juan aware. at bedside. [facility] 2023-10-01 13:36:52 Problem: Falls, Risk of Goal: Absence of falls Outcome: Progressing as expected Problem: Skin integrity Impaired (Risk or Actual) Goal: Wound healing Outcome: Progressing as expected Goal: Prevention of new skin breakdown Outcome: Progressing as expected Problem: Venous Thromboembolism, (actual or risk of) Goal: Absence of venous thromboembolism (Risk) Outcome: Progressing as expected Goal: Prevent further complications associated with VTE diagnosis (Actual) Outcome: Progressing as expected Problem: Pain Goal: Control of pain at or below patient's documented comfort goal Outcome: Progressing as expected Goal: Reduction in pain sensation Outcome: Progressing as expected Problem: Discharge Planning Goal: Adequate for discharge Outcome: Progressing as expected Goal: Effective communication Outcome: Progressing as expected [facility] 2023-10-01 07:31:50 Problem: Falls, Risk of Goal: Absence of falls Outcome: Progressing as expected Problem: Skin integrity Impaired (Risk or Actual) Goal: Wound healing Outcome: Progressing as expected Goal: Prevention of new skin breakdown Outcome: Progressing as expected Problem: Venous Thromboembolism, (actual or risk of) Goal: Absence of venous thromboembolism (Risk) Outcome: Progressing as expected Goal: Prevent further complications associated with VTE diagnosis (Actual) Outcome: Progressing as expected Problem: Pain Goal: Control of pain at or below patient's documented comfort goal Outcome: Progressing as expected Goal: Reduction in pain sensation Outcome: Progressing as expected Problem: Discharge Planning Goal: Adequate for discharge Outcome: Progressing as expected Goal: Effective communication Outcome: Progressing as expected [facility] Pietro Stroud RN [facility] 2023-09-30 21:12:51 Report given to MARY Westbrook [facility] Med Surg CHARGE CARD CLERK Niyah Dickerson RN [facility] 2023-09-30 18:19:35 Pt arrived via [place] [facility] with c/o generalized malaise and cough. Per ems they frequent the patient's home for lift assists and has frequent falls. FSBS by ems 128 CHARGE CARD CLERK [facility] 2023-09-30 18:18:00 Associated Order(s): EKG-12 Lead ROUTINE ONCE Pre-Procedure Diagnose(s): Weakness Post-Procedure Diagnose(s): Weakness [facility] Emergency Department Note Demographics Patient Name: Koffi Dasilva Date of : 1940 83 year old Treatment Room: [place] [address] Primary Care Physician: No primary care provider on file. Pre Hospital Care Patient Escorted by: Self [9] Mode of Arrival: EMS - [facility] ([place]) [43] EMS Treatment Prior to ED Arrival: FLIGHT ENGINEER PERFORMANCE QUALIFIED treatment: [facility] ED Events Date/Time Event User Comments 09/30/231831 Medical Screening Begins JOHNNY JUNIOR MD -- 09/30/231831 First Provider Evaluation JOHNNY JUNIOR MD -- Chief complaint Chief Complaint Patient presents with MALAISE ED Triage Notes Chloe Brown RN 09/30/2023 18:25 Pt arrived via [place] [facility] with c/o generalized malaise and cough. Per ems they frequent the patient's home for lift assists and has frequent falls. FSBS by ems 128 Chief Complaint Patient presents with MALAISE History of present illness HPI 83 yo man comes to the ED via EMS for evaluation of weakness. EMS reports they usually get called for lift assist but this time family reported patient was weaker than usual. Patient is a poor historian due to his dementia. H/o HTN, chronic pain, recurrent falls. Seems to be having respiratory symptoms for a few days with cough. BP (!) 144/87 | Pulse 85 | Temp 38.1 ?C (100.6 ?F) (Oral) | Resp 18 | Ht 1.702 m (5' 7") | Wt 98 kg (216 lb) | SpO2 93% | BMI 33.83 kg/m? Past Medical and Social History No past medical history on file. Tetanus received in last 5 years: Unknown Childhood immunizations: Up-to-date Past Surgical History No past surgical history on file. Medications Medications NaCl 0.9% (NS) bolus infusion 1,000 mL (0 mL IV Infusion Stopped 09/30/232030) Allergies No Known Allergies Review of Systems Review of Systems Constitutional: Positive for fatigue. HENT: Negative. Eyes: Negative. Respiratory: Positive for cough. Breasts: Negative. Cardiovascular: Negative. Gastrointestinal: Negative. Genitourinary: Negative. Musculoskeletal: Negative. Skin: Negative. Neurological: Positive for weakness. Psychiatric/Behavioral: Negative. Endocrine: Endocrine negative Physical Exam BP (!) 144/87 | Pulse 85 | Temp 38.1 ?C (100.6 ?F) (Oral) | Resp 18 | Ht 1.702 m (5' 7") | Wt 98 kg (216 lb) | SpO2 93% | BMI 33.83 kg/m? Physical Exam Vitals and nursing note reviewed. Constitutional: General: He is not in acute distress. Appearance: He is well-developed. He is not ill-appearing. HENT: Head: Normocephalic. Comments: Bruising to face and periorbital area Right Ear: Ear canal and external ear normal. Left Ear: Ear canal and external ear normal. Nose: Nose normal. No congestion or rhinorrhea. Mouth/Throat: Mouth: Mucous membranes are moist. Pharynx: Oropharynx is clear. No oropharyngeal exudate or posterior oropharyngeal erythema. Eyes: General: Right eye: No discharge. Left eye: No discharge. Conjunctiva/sclera: Conjunctivae normal. Pupils: Pupils are equal, round, and reactive to light. Cardiovascular: Rate and Rhythm: Normal rate and regular rhythm. Pulses: Normal pulses. Heart sounds: Normal heart sounds. No murmur heard. No friction rub. Pulmonary: Effort: Pulmonary effort is normal. No respiratory distress. Breath sounds: Normal breath sounds. No stridor. No wheezing or rhonchi. Abdominal: General: Bowel sounds are normal. There is no distension. Palpations: Abdomen is soft. There is no mass. Tenderness: There is no abdominal tenderness. Hernia: No hernia is present. Musculoskeletal: General: No swelling, tenderness, deformity or signs of injury. Normal range of motion. Cervical back: Normal range of motion and neck supple. No rigidity or tenderness. Skin: General: Skin is warm and dry. Capillary Refill: Capillary refill takes less than 2 seconds. Coloration: Skin is not jaundiced or pale. Findings: No bruising or erythema. Neurological: General: No focal deficit present. Mental Status: He is alert. Mental status is at baseline. He is disoriented. Cranial Nerves: No cranial nerve deficit. Sensory: No sensory deficit. Motor: No weakness. Coordination: Coordination normal. Labs and Studies Lab Results CBC WITH DIFF - Abnormal Result Value Ref Range WBC 9.09 4.20 - 10.70 10*3/?L RBC 4.60 4.26 - 5.52 10*6/?L HGB 15.4 12.2 - 16.4 g/dL HCT 46.9 38.4 - 49.3 % MCV 102.0 (*) 81.7 - 95.6 fL MCH 33.5 (*) 26.1 - 32.7 pg MCHC 32.8 31.2 - 35.0 g/dL RDW-SD 52.6 (*) 38.5 - 51.6 fL RDW-CV 13.9 12.1 - 15.4 % PLT 222 150 - 328 10*3/?L MPV 11.8 9.8 - 13.0 fL NRBC/100 WBC 0.0 0.0 - 10.0 /100 WBCs NRBC x10 3 <0.01 10*3/?L GRAN MAT (NEUT) % 71.0 % IMM GRAN % 0.20 % LYMPH % 14.2 % MONO % 13.1 % EOS % 0.8 % BASO % 0.7 % GRAN MAT x10 3 (ANC) 6.46 1.99 - 6.95 10*3/uL IMM GRAN x10 3 <0.03 0.00 - 0.06 10*3/uL LYMPH x10 3 1.29 1.09 - 3.23 10*3/uL MONO x10 3 1.19 (*) 0.36 - 1.02 10*3/uL EOS x10 3 0.07 0.06 - 0.53 10*3/uL BASO x10 3 0.06 0.01 - 0.09 10*3/uL COMP. METABOLIC PANEL (31055) - Abnormal NA 142 135 - 145 mmol/L K 4.2 3.5 - 5.0 mmol/L CL 107 98 - 108 mmol/L CO2 TOTAL 31 23 - 31 mmol/L AGAP 4 2 - 16 BUN 29 (*) 7 - 23 mg/dL GLUCOSE 93 70 - 110 mg/dL CREATININE 0.92 0.60 - 1.25 mg/dL TOTAL BILI 0.6 0.1 - 1.1 mg/dL CALCIUM 9.2 8.6 - 10.6 mg/dL T PROTEIN 7.2 6.3 - 8.2 g/dL ALBUMIN 4.1 3.5 - 5.0 g/dL ALK PHOS 109 34 - 122 U/L ALTv 16 5 - 50 U/L AST(SGOT) 24 13 - 40 U/L eGFR 83.6 mL/min/1.73m2 N-TERMINAL PRO-BNP - Abnormal NT-proBNP 1,950 (*) <=125 pg/mL RAPID INFLUENZA A/B - Normal Rapid Influenza A Negative Negative Rapid Influenza B Negative Negative COVID-19 (ID NOW RAPID TESTING) - Normal SARS-CoV-2 Rapid ID NOW Not Detected Not Detected RAPID RSV - Normal Rapid RSV Negative Negative LIPASE - Normal LIPASE 122 0 - 220 U/L TROPONIN I - Normal TROPONIN I 0.005 <=0.034 ng/mL CT HEAD WO CONTRAST Final Result CT HEAD WO CONTRAST, CT MAXILLOFACIAL/MANDIBLE WO CONTRAST HISTORY: 83 years-old Male; Head trauma, moderate-severe; c/o weakness, hx of frequent falls COMPARISON: None TECHNIQUE: Axial CT of the head, maxillofacial and mandible without IV contrast was performed. Coronal and sagittal reformatted images were generated. FINDINGS: The ventricles and cerebral sulci are normal in caliber and configuration. No hydrocephalus, midline shift or pathological extra-axial fluid collection is present. The basal cisterns are unremarkable. There is no acute intracranial hemorrhage or significant mass effect. Bilateral basal ganglia hypodensities favor remote lacunar infarcts. Periventricular and deep matter hypodensities are nonspecific but likely represent chronic small vessel ischemic changes. The cespedes-white matter differentiation is preserved. The mastoid air cells and paranasal air sinuses are clear. The calvarium and central skull base are unremarkable. CT MAXILLOFACIAL/MANDIBLE FINDINGS: Nasal bone fracture with overlying soft tissue swelling favors chronic. The nasal septum is intact. The frontal processes of the maxilla are intact. The orbits, globes and other intraorbital structures are unremarkable. The maxilla and maxillary sinus march are intact. The pterygoid plates are intact. The zygomatic arches are intact. Dental amalgam streak artifact is noted. The mandible, temporomandibular joints and dentition are otherwise unremarkable. IMPRESSION No acute intracranial hemorrhage or mass effect. No acute facial fracture. Preliminary Report Dictated by Resident: Glenn Montgomery MD., have reviewed this study and agree with the above report. CT MAXILLOFACIAL/MANDIBLE WO CONTRAST Final Result CT HEAD WO CONTRAST, CT MAXILLOFACIAL/MANDIBLE WO CONTRAST HISTORY: 83 years-old Male; Head trauma, moderate-severe; c/o weakness, hx of frequent falls COMPARISON: None TECHNIQUE: Axial CT of the head, maxillofacial and mandible without IV contrast was performed. Coronal and sagittal reformatted images were generated. FINDINGS: The ventricles and cerebral sulci are normal in caliber and configuration. No hydrocephalus, midline shift or pathological extra-axial fluid collection is present. The basal cisterns are unremarkable. There is no acute intracranial hemorrhage or significant mass effect. Bilateral basal ganglia hypodensities favor remote lacunar infarcts. Periventricular and deep matter hypodensities are nonspecific but likely represent chronic small vessel ischemic changes. The cespedes-white matter differentiation is preserved. The mastoid air cells and paranasal air sinuses are clear. The calvarium and central skull base are unremarkable. CT MAXILLOFACIAL/MANDIBLE FINDINGS: Nasal bone fracture with overlying soft tissue swelling favors chronic. The nasal septum is intact. The frontal processes of the maxilla are intact. The orbits, globes and other intraorbital structures are unremarkable. The maxilla and maxillary sinus march are intact. The pterygoid plates are intact. The zygomatic arches are intact. Dental amalgam streak artifact is noted. The mandible, temporomandibular joints and dentition are otherwise unremarkable. IMPRESSION No acute intracranial hemorrhage or mass effect. No acute facial fracture. Preliminary Report Dictated by Resident: Glenn Montgomery MD., have reviewed this study and agree with the above report. XR CHEST 1 VW Final Result Exam: Chest (1 View), 09/30/2023 6:45 PM. Ordering Physician: JOHNNY JUNIOR. History: Cough. Technique: One view of the chest. Comparison: None. Findings: Cardiac silhouette is mildly enlarged. Thoracic aorta is tortuous. There is no pneumothorax. There is no consolidation or pleural effusion. Pleural and diaphragmatic contours are normal. Mild reticulonodular densities are seen at the lung bases. Osseous structures show degenerative changes. IMPRESSION Impression: Diffuse vascular reticulonodular interstitial opacities, which can be seen with infectious bronchiolitis or atypical infection. No consolidation. RL: [id number] End of Report Orders and Treatments Orders Placed This Encounter Procedures XR CHEST [address] HEAD WO CONTRAST CT MAXILLOFACIAL/MANDIBLE WO CONTRAST RAPID INFLUENZA A/B COVID-19 (ID NOW TESTING) Rapid RSV CBC WITH DIFF COMP. METABOLIC PANEL (15205) LIPASE TROPONIN I N-TERMINAL PRO-BNP Lab Only COVID Interpretation Orders Placed This Encounter Medications NaCl 0.9% (NS) bolus infusion 1,000 mL Patient's Medications No medications on file Procedures EKG-12 Lead ROUTINE ONCE Date/Time: 09/30/2023 8:39 PM Performed by: Johnny Junior MD Authorized by: Johnny Junior MD ECG interpreted by ED Physician in the absence of a director property: no Previous ECG: Previous ECG: Unavailable Interpretation: Interpretation: abnormal Rate: ECG rate: 82 ECG rate assessment: normal Rhythm: Rhythm: atrial flutter Ectopy: Ectopy: none QRS: QRS axis: Left QRS intervals: Normal QRS conduction: normal ST segments: ST segments: Normal T waves: T waves: normal Q waves: Abnormal Q-waves: not present Evidence Care MDM & Notes Patient was evaluated for an emergency medical condition related to MALAISE . History and/or review of systems is limited by:History limited: None. Medical Decision Making 83 yo man comes to the ED via EMS for evaluation of weakness. EMS reports they usually get called for lift assist but this time family reported patient was weaker than usual. Patient is a poor historian due to his dementia. H/o HTN, chronic pain, recurrent falls. Seems to be having respiratory symptoms for a few days with cough. BP (!) 159/88 | Pulse 83 | Temp 38.3 ?C (100.9 ?F) (Oral) | Resp 22 | Ht 1.702 m (5' 7") | Wt 98 kg (216 lb) | SpO2 93% | BMI 33.83 kg/m? DDx URI symptoms, fall, weakness, dementia, infection, head contusion. Problems Addressed: Alzheimer's dementia without behavioral disturbance, psychotic disturbance, mood disturbance, or anxiety, unspecified dementia severity, unspecified timing of dementia onset: chronic illness or injury Atrial flutter, unspecified type: undiagnosed new problem with uncertain prognosis Recurrent falls: chronic illness or injury Weakness: complicated acute illness or injury with systemic symptoms Amount and/or Complexity of Data Reviewed Labs: ordered. Radiology: ordered. Risk Prescription drug management. Diagnosis/Impression as of 09/30/232039 Weakness Recurrent falls Alzheimer's dementia without behavioral disturbance, psychotic disturbance, mood disturbance, or anxiety, unspecified dementia severity, unspecified timing of dementia onset Atrial flutter, unspecified type Upper respiratory tract infection, unspecified type Case discussed with: Hospitalist Dr. Giron Barriers & Social Determinants of Healthcare: none Limitations to patient care and compliance: none. History, physical exam findings, results of visit, differential diagnosis, medication regimens and plan of future care have been considered. Additional MDM may be found in the ED course. Differential diagnosis considered and final disposition made based on information gathered during evaluation and may not be completely ruled out or specifically listed. Vital signs were rechecked before final disposition and determined to be stable. Diagnoses ICD-10-CM 1. Weakness R53.1 2. Recurrent falls R29.6 3. Alzheimer's dementia without behavioral disturbance, psychotic disturbance, mood disturbance, or anxiety, unspecified dementia severity, unspecified timing of dementia onset G30.9 F02.80 4. Atrial flutter, unspecified type I48.92 5. Upper respiratory tract infection, unspecified type J06.9 Disposition and Condition ED Disposition ED Disposition Admit - Inpatient Condition Stable Comment -- Patient's Medications No medications on file Dragon Dictation Software is used frequently and may produce errors. Promptly contact for obvious discrepancies. Johnny Junior MD, FACEP, FAAEM [employer] Manager of Emergency and Internal Medicine [facility] #[id number] Johnny Junior MD 09/30/232039 CHARGE CARD CLERK [facility]
[2024-04-18 11:11] VITALS: BMI 33.8
[2024-04-18] MEDS ORDERED: CODEINE 30MG/APAP 300MG TAB PO PRN (11:52)
[2024-04-18] MEDS: BENZONATATE 100 MG CAP PO SCH (13:41)
[2024-04-18] MEDS: CARBIDOPA/LEVODOPA 25/100 TAB PO SCH (13:41)
[2024-04-18] MEDS: INSULIN REGULAR (HUMAN) 100 UNIT/ML SQ SCH (16:30)
[2024-04-18] MEDS: METFORMIN HCL 500 MG TAB PO SCH (17:06)
[2024-04-18] MEDS ORDERED: NAC PO SCH (20:00)
[2024-04-18] MEDS ORDERED: DOCOSAHEXANOIC AC/EPA 1000 MG PO SCH (20:00)
[2024-04-18] MEDS: BUSPIRONE HCL 5 MG TABLET PO SCH (20:07)
[2024-04-18] MEDS: [UNRECOGNIZED DRUG - OTHER] PO SCH (20:07)
[2024-04-18] MEDS: DONEPEZIL HCL 5 MG TAB PO SCH (20:07)
[2024-04-18] MEDS: FISH OIL 2000 MG PO SCH (20:07)
[2024-04-18] MEDS: ATORVASTATIN 10 MG TAB PO SCH (20:07)
[2024-04-19 06:43] LABS: Absolute Basophils 0.1 K/uL (0-0.5); Absolute Eosinophils 0.2 K/uL (0-0.5); Absolute Lymphocytes (CBC) 1.5 K/uL (0.7-4.9); Absolute Monocytes 0.8 K/uL (0.1-1.3); Absolute Neutrophil 6.2 K/uL (1.8-8.0); Eosinophils % 2.4 % (0-4.4); Hematocrit 44.5 % (39.6-49.0); Hemoglobin 15.1 g/dL (13.6-17.9); Lymphocytes % 16.9 % (15.3-44.8); MCH 34.4 pg (27.0-35.0); MCHC 33.9 g/dL (32.0-36.0); MCV 101.4 fL (80-100); MPV 9.2 fL (7.6-11.3); Monocytes % 9.1 % (3.3-12.3); Neutrophils % 70.6 % (41.7-73.7); Nucleated Red Blood Cells % 0.1 % (0-0); Platelets 255 thou/uL (152-406); RBC Red Blood Cell Count 4.39 M/uL (4.33-5.43)
[2024-04-19 07:04] LABS: Albumin 2.9 g/dL (3.4-5.0); Anion Gap 4.5 mEq/L (5.0-15.0); Magnesium 2.2 mg/dL (1.6-2.4); Potassium 3.5 mEq/L (3.5-5.1)
[2024-04-19] MEDS: DULOXETINE 30 MG CAP PO SCH (07:22)
[2024-04-19] MEDS: PANTOPRAZOLE 40MG TABLET PO SCH (07:22)
[2024-04-19] MEDS: LOSARTAN POTASSIUM 50 MG TABLET PO SCH (07:23)
[2024-04-19] MEDS ORDERED: METHYLCOBALAMIN PO SCH (08:00)
[2024-04-19] MEDS ORDERED: MATURE MULTI PO SCH (08:00)
[2024-04-19] MEDS ORDERED: COSAMIN DS PO SCH (08:00)
[2024-04-19] MEDS ORDERED: Multi-VIT(Centravite Senior) 1 TAB TAB PO SCH (08:00)
[2024-04-19] MEDS: FUROSEMIDE 20 MG TABLET PO SCH (09:27)
[2024-04-19] MEDS: POTASSIUM CL SA 10 MEQ TAB PO SCH (09:27)
[2024-04-19] MEDS: predniSONE 5 MG TAB PO SCH (09:28)
[2024-04-19] MEDS: MELOXICAM 7.5 MG TAB PO SCH (09:28)
[2024-04-19] MEDS: COSAMIN DS PO SCH (09:37)
[2024-04-19] MEDS: METHYLCOBALAMIN PO SCH (09:38)
--- NOTE | 2024-04-19 11:31 | P.HP ---
Patient History Date of Service: 04/19/24 Reason for admission: Progressive deconditioning, memory loss History of Present Illness: 84yo M, PMH: Pulmonary fibrosis, DVT (2018), heart disease, Hypertension, Chronic COPD, Arthritis / chronic pain, Parkinson's disease dementia, DM2, Ataxia, recurrent falls, prostate cancer s/p prostatectomy Patient presents with progressively worsening weakness, memory loss, deconditioning, mobility. He had been recently seen in office ~03/29/24 for frequent falls, reportedly fallen 8 times in the last 11 days. Prior to this increase, he reports only falling ~1/month and that he was independent with activities but is now requiring assistance with activities. Dr. Norris felt he had increased s/s of parkinson's with possibly lewy body dementia and recommended IPR to further optimize and improve patient condition to return to PLOF and decrease further risk of falls at home. He is to continue skilled PT, OT, ST services while here to work on strength/endurance to return to prior level of function before returning home. Allergies No Known Allergies Allergy (Verified 02/27/24 09:17) Home Medications: Acetylcysteine [Nac] 1 tab PO BID 04/18/24 Benzonatate 200 mg PO TID 04/18/24 Buspirone HCl [Buspar] 10 mg PO DAILY 04/18/24 Carbidopa/Levodopa [Sinemet 25-100 mg Tablet] 1 tab PO TID 04/18/24 Codeine/APAP [Tylenol #3*] 1 tab PO DAILY PRN 04/18/24 Docosahexanoic AC/Epa [Fish Oil 1,000 MG*] 2,000 mg PO BID 04/18/24 Donepezil HCl [Aricept] 10 mg PO BID 04/18/24 Duloxetine HCl [Cymbalta] 60 g PO DAILY 04/18/24 Furosemide [Lasix*] 20 mg PO DAILY 04/18/24 Glucosam/Chondroit/C/Manganese [Cosamin Ds Capsule] 3 cap PO DAILY 04/18/24 Losartan Potassium 25 mg PO DAILY 04/18/24 Meloxicam 15 mg PO DAILY 04/18/24 Metformin ER [Glucophage ER*] 500 mg PO 1700 04/18/24 Multivit-Min/Folic Acid/Vit K1 [Multi For Her 50 Plus Softgel] 1 cap PO DAILY 04/18/24 Pantoprazole Sodium 20 mg PO DAILY 04/18/24 Potassium Oral Tab [Klor-Con 10 mEq Tab*] 10 mg PO DAILY 04/18/24 Semaglutide [Ozempic] 2 mg SQ Q7D 04/18/24 Simvastatin 20 mg PO BEDTIME 04/18/24 predniSONE [Prednisone*] 5 mg PO DAILY 04/18/24 - Past Medical/Surgical History Has patient received pneumonia vaccine in the past: Yes Diabetic: Yes -: Parkinsons -: arthritis -: COPD -: Dimentia -: HTN -: recurrent falls -: Ataxia -: pulmonary fibrosis -: prostate cancer -: DVT 2018 -: Prostatectomy 2002 - Social History Smoking Status: Never smoker Alcohol use: No CD- Drugs: No Caffeine use: Yes Place of Residence: Home Review of Systems 10-point ROS is otherwise unremarkable Physical Examination - Vital Signs Temperature: 97.8 F Blood Pressure: 152/97 Pulse: 81 Respirations: 18 Pulse Ox (%): 95 - Studies Laboratory Data (last 24 hrs) 04/19/24 04/19/24 06:26 06:26 WBC 8.70 Hgb 15.1 Hct 44.5 Plt Count 255 Sodium 142 Potassium 3.5 BUN 19 H Creatinine 0.79 Glucose 82 Magnesium 2.2 Assessment and Plan - Plan Physical Exam: GEN: Alert, oriented, NAD HEENT: Normal conjunctiva, sclera anicteric CV: Regular rate and rhythm, no edema Pulm: Nonlabored respirations on room air, clear bilaterally ABD: Soft, nontender, nondistended Integumentary: No rashes Neuro: Normal speech with occasional stuttering speech; RLE str: 3-4/5, LLE: 4/5 Current Level Of Functioning: Mr. Mena demonstrated decreased function and mobility - currently requiring CGA with minimal assistance with ambulating, STS, showering, and dressing. He reports increased difficulty with recalling words, thoughts, conversations, names, personal items, medications affecting his day to day life. Has difficulty expressing needs and ideas, finishing thoughts. Requires frequent reorientation and repetition. Plan: 1. He will have physical and occupational therapy 3 hours a day, 5 of 7 days. 2. Multiple comorbid conditions are managed by continuing, lasix 20 mg daily for heart failure, losartan 25 mg daily for hypertension, tylenol #3 as needed for pain, sinemet, aricept for dementia, statin for hyperlipidemia, metformin for Diabetes. Mr. Mena has a good understanding of the process of admission to the inpatient rehabilitation facility and how he will benefit from physical, occupational therapy. If need be, additional help from the hospitalist service may be consulted. He will have 24 hours a day, 7 days a week skilled rehabilitation nursing for evaluating his current condition, addressing medications, and blood draws as appropriate and ordering and communicating with physician about the patient's status before ordering new studies. He will have daily physician evaluation and management to integrate his medical care and physical therapy. He will have administrator social welfare evaluation and management for discharge planning, home equipment, medications, and continued physical therapy. Barriers To Discharge: Mr. Mena presented with progressive weakness, decrease in mobility and function. Outpatient workup showed progressive memory loss with increased risk of alzheimers/dementia with lewy body disease. Hes had 8 recurrent falls in the last 11 days. Prior to these last 2 weeks he reports to falling ~1/month and had been previously independent with activities. He has chronic pain / arthritis that could contribute to his decreased level of function. Psych / pain medications could cause increase drowsiness / decreased responsiveness that could interfere with PT/OT. He is requiring frequent reorientation and repetition of verbal commands. Length Of Stay: About 7-10 days. Disposition: Home with family and continuing therapy via Home Health. Prognosis: Good. Rehab Specific Goals: Patient will focus on bed mobility, gait training, functional mobility training, transfers training, balance assessments, stair training. OT will work with patient to improve better functional independence with ADLs, toilet transfer training, upper extremity strengthening. ST will be available to address any cognitive or speech deficits as needed. The above goals were reviewed with Mr. Mena and he is in agreement. By signing this document, I acknowledge I personally performed a full physical examination on Mr. Mena no later than 24 hours after his admission to the inpatient rehabilitation facility and determined that he is able to tolerate the above course of treatment at an intensive level for a reasonable period of time. A detailed individualized plan of care for him will be completed by hospital day 4 based on the preadmission screen, history and physical, and therapy evaluation - Advance Directives Does patient have a Living Will: No Does patient have a Durable POA for Healthcare: No Time Spent Managing Pts Care (In Minutes): 70
[2024-04-19 11:53] LABS: Calcium Oxalate Crystals- Ur Few /HPF (None Seen); Specific Gravity 1.021 (1.005-1.030); Sqamous Epithelial <5 /HPF (None Seen); Urine Bacteria None Seen /HPF (<20); Urine Bilirubin NEGATIVE (Negative); Urine Blood Negative (Negative); Urine Clarity Clear (Clear); Urine Color Yellow (Yellow); Urine Culture Reflex Order NOT NEEDED; Urine Glucose NEGATIVE (Negative); Urine Ketones NEGATIVE (Negative); Urine Micro Reflex YN NO BILL MICROSCOPIC; Urine Mucus Slight /HPF (None Seen); Urine Nitrite NEGATIVE (Negative); Urine Protein NEGATIVE (Negative); Urine RBC <5 /HPF (None Seen); Urine Urobilinogen Normal (Normal); Urine WBC <5 /HPF (<5); Urine pH 5.5 (5.0-7.0)
[2024-04-19 22:20] LABS: Prealbumin 15.1 mg/dL (20-40)
--- NOTE | 2024-04-20 23:41 | PN ---
Date of Progress Note: 04/20/2024 Time Of Service: 1:15 p.m. Subjective: Mr. Mena is resting in bed. He is in between therapy sessions. He is very happy with his therapy. He said he was able to ambulate around the unit more than once, go up and down steps 3 times and he is working on transferring in and out of bed he said with the gait belt. He denies any loss of balance and he is ambulating with the therapist at his side. Objective: No fevers or chills. No myalgias or arthralgias. No rash. No psychiatric complaints. Does have a diffuse stiffness associated with Parkinson disease. Physical Examination: Vital Signs: Blood pressure 132/82, pulse 83, respiratory rate 14 to 17, temperature 97.4, oxygen sa turation 95%. General: Mr. Mena is resting in bed. HEENT: He is normocephalic, atraumatic. Sclerae are anicteric. Oropharynx pink and moist. Neck: Supple. Chest: Clear. Heart: Regular. Extremities: He does have an increased tone. No significant tremors. Some mild bradykinesia with c ogwheeling and slow gait. Laboratory Studies: White blood cell count 8.7, hemoglobin 15.1, platelets 255. Sodium ranged from 83 to 127. Urinalysis from the 5th completely normal. X-ray/imaging: No new x-rays or imaging. Medications: Tylenol No.3 for pain rated 5-7 that is moderate and that is daily as needed, Lipitor 1 0 mg at bedtime, Tessalon Perles 200 mg 3 times daily, BuSpar 10 mg at bedtime, Sinemet 25/100 three times daily, donepezil 10 mg daily, Cymbalta 60 mg daily, Lasix 20 mg daily, Cozaar 25 mg daily, Mobi c 15 mg daily, metformin 500 mg in the evening, Protonix 40 mg daily, potassium 10 mEq daily, prednis one 5 mg daily. Progress Made With Physical, Occupational, And Speech Therapy: With physical therapy today, he compl eted bed mobility including [id number] with contact guard to minimum assistance; stand pivot transf er, contact guard to minimum assistance. He ambulated 325 feet with a rolling walker with minimum as sistance, up and down 15 steps with contact guard assistance and covered 100 feet with a rolling walk er and min assistance and another 350 feet during the afternoon session. Mr. Mena is making great progress, although he just got to the unit with his physical and occupation al therapy. He also did speech therapy and recalled 3 of 3 unrelated pictures after 5, 15, and 30-mi nute delay. He was able to demonstrate sustained attention to structure tasks 2 out of 3 columns acc urately. He did request completed directions for managing 4 units of information scoring 7/10. Did have some problem solving for activities of daily living scenarios in 9/10 opportunities. Assessment: Mr. Mena is an 84-year-old patient with Parkinson disease, who was making excellent pro mireya with his physical, occupational, and speech therapy, has comorbid diabetes mellitus, arthritis, hypokalemia, depression, and Parkinson's associated memory loss with cough and dyslipidemia. Plan: 1.Continue with physical, occupational, and speech therapy for 3.5 hours, 5 of 7 days. 2.Continue all comorbid condition medications which are noted and those doses are noted above and in clude Sinemet 25/100 three times daily, Aricept 10 mg twice daily, duloxetine 60 mg daily, Lasix 20 m g daily, BuSpar 10 mg at bedtime, Tessalon Perles 200 mg 3 times daily, Lipitor 10 mg at bedtime, Tyl enol No.3 as needed for pain, Cozaar 25 mg daily, Protonix 40 mg daily, metformin 500 mg daily, and p rednisone as noted. LB/MODL Voice ID: [id number] Report ID: [id number]
--- NOTE | 2024-04-21 20:14 | PN ---
Date of Progress Note: 04/21/2024 Time Of Service: 1:15 p.m. Subjective: Mr. Mena is resting in bed. He is very happy with his progress. Denies any loss of ba fortino as he is ambulating. He is going around the unit up and down steps. Denies any pain. His big gest complaint he says is the bed is too small and would like a bigger bed. Objective: No fevers, chills, nausea, vomiting. No myalgias, arthralgias. No other issues. Mild s tiffness associated with Parkinson's disease and again he wants a bigger bed. Physical Examination: Vital Signs: Blood pressure 148/86, pulse 82, respiratory rate 16, temperature 97, oxygen saturation 96%. General: Again, Mr. Mena is resting in bed in between therapy sessions. HEENT: He is normocephalic, atraumatic. Sclerae anicteric. Oropharynx pink and moist. Neck: Supple. Chest: Clear. Heart: Regular. Extremities: No significant clubbing, cyanosis, or edema. Neurological: Slight masklike face and increased tone. No obvious tremor. Mild cogwheeling and oth erwise no other issues in terms of neurological deficits. Laboratory Studies: Blood sugars ranged from 93 to 103. X-ray/imaging: No new x-rays or imaging. Medications: Medications have been reviewed and are unchanged. Progress Made With Physical, Occupational, And Speech Therapy: Today with his physical therapy, he p erformed [id number]-jx-vmx transfers with standby assistance, multiple [id number]-kj-[id number] transfers with contac t guard assistance, ambulated 300 feet, 250 feet, and 305 feet with contact guard assistance. He asc ended and descended 15 steps with bilateral handrails with contact guard assistance. Mobilized a whe elchair 250 feet with standby assistance. With occupational therapy, bathing minimum assistance, low er body dressing at supervision, independent with upper body dressing, showering, grooming, and oral care. With speech, he recalled 3 of 4 unrelated pictures at 5-minute delay with internal memory stra tegies improved. He improved selective attention during structured task in 2 of 3 repetitions. Able to demonstrate organizational thinking in 5/10 opportunities. Mr. Mena is making excellent progress with all of his therapy, physical, occupational, and speech th erapy. No evidence of loss of balance. The patient of course had multiple episodes of loss of argenis ce as a reason for him coming into the hospital. He has Parkinson's with dyskinesia. He is actually doing excellent with aggressive therapy and it is very important and that will be communicated to tez zuluaga that he should continue therapy at the same level after discharge. Assessment: Mr. Mena is an 84-year-old patient in the rehabilitation unit with Parkinson's disease with dyskinesia. He is making excellent progress with all of his therapy and no significant limitati ons have been identified. He does have comorbid dyslipidemia, hypokalemia improved, depression much improved, diabetes mellitus, arthritis. Plan: 1.He will continue with physical, occupational, and speech therapy for 3.5 hours, 5 of 7 days. 2.He will continue with all medications including for memory loss, depression, hypertension, and leona betes. Comorbidities That Are Impacting Rehabilitation: Comorbidities are all stably managed and do not neg atively impact his rehabilitation. DEEPIKA/EDUARDO Voice ID: [id number] Report ID: [id number]
[2024-04-22] MEDS: INSULIN REGULAR (HUMAN) 100 UNIT/ML SQ SCH (06:47)
[2024-04-22 07:33] LABS: Absolute Basophils 0.1 K/uL (0-0.5); Absolute Eosinophils 0.2 K/uL (0-0.5); Absolute Lymphocytes (CBC) 1.5 K/uL (0.7-4.9); Absolute Monocytes 0.8 K/uL (0.1-1.3); Absolute Neutrophil 6.8 K/uL (1.8-8.0); Basophils % 0.7 % (0-1.3); Eosinophils % 2.5 % (0-4.4); Hematocrit 49.4 % (39.6-49.0); Hemoglobin 16.4 g/dL (13.6-17.9); MCHC 33.1 g/dL (32.0-36.0); MCV 102.5 fL (80-100); MPV 9.5 fL (7.6-11.3); Monocytes % 8.3 % (3.3-12.3); Neutrophils % 72.5 % (41.7-73.7); Nucleated Red Blood Cells % 0.1 % (0-0); Platelets 262 thou/uL (152-406); RBC Red Blood Cell Count 4.82 M/uL (4.33-5.43); Red Cell Distribution Width 13.2 % (12.1-15.2)
[2024-04-22 08:01] LABS: Anion Gap 10.4 mEq/L (5.0-15.0); Potassium 3.4 mEq/L (3.5-5.1); Prealbumin 15.8 mg/dL (20-40)
[2024-04-22] MEDS: POTASSIUM CL SA 10 MEQ TAB PO SCH (20:36)
[2024-04-22] MEDS: GLUCERNA SHAKE 237 ML CAN PO SCH (20:38)
--- NOTE | 2024-04-23 01:17 | PN ---
Date of Progress Note: 04/22/2024 Time Of Service: 1:15 p.m. Subjective: Mr. Mena is resting in bed in between therapy sessions. He is very happy with his exer cises so far, in and out of bed, ambulate around the unit, going up and down steps, and denies any lo ss of balance, freezing, or falling. Objective: No fevers, chills, nausea, vomiting, myalgias, arthralgias, rash, headache, weight change . No other complaints. Physical Examination: Vital Signs: Blood pressure 129/86, pulse 93, respiratory rate 16, temperature 98.1, O2 saturation 9 6%. General: Mr. Mena is resting in bed. HEENT: Again, he is normocephalic, atraumatic. Sclerae anicteric. Oropharynx pink and moist. Neck: Supple. Chest: Clear. Heart: Regular. Extremities: Show no significant clubbing, cyanosis, or edema. Neurologic: He does not have any obvious rest tremor. No significant masklike face. No cogwheeling or ratcheting. Laboratory Studies: White blood cell count 9.4, hemoglobin 16.4, platelets 262. Sodium 141, potassi um 3.4, chloride 109, carbon dioxide 25, BUN 21, creatinine 0.77, glucose ranged from 80 to 143, calc ium 9.1, magnesium 2.0, albumin 3.0, prealbumin 15.8. X-ray/imaging: No new x-rays or imaging. Medications: Medications have been reviewed and remain unchanged. Progress Made With Physical, Occupational, And Speech Therapy: With physical therapy today, he perfo rmed bilateral seated exercises, 30 repetitions, to become stronger. Did [id number] transfer inde pendently. Multiple lkd-jx-zoemo transfers with standby assistance and verbal cues. He did have a c aregiver who was there and showed a probable way for him to get off the floor if he falls and family help him to perform scooting forward and backwards and again how to mobilize and get off the floor. Today, he ambulated with a rolling walker, 500 feet twice, 250 feet once, and 175 feet twice with con tact guard assistance. Emphasis was placed on upright posture as he ambulates. With occupational th erapy, independent with asgxxd-ht-foe transfer, independent oral care, washing and drying face and banegas nds and shaving with a razor. With speech therapy, recalled 3 of 4 unrelated pictures of 5 minutes d elay with internal memory strategies. He is able to exhibit problem-solving for IADLs in 6 of 6 oppo rtunities. Mr. Mena is making excellent progress with physical, occupational and speech therapy and discharge n ext week. Assessment: Mr. Mena is an 84-year-old patient in the rehabilitation unit with Parkinson disease, d ysplasia, which he is improving very well with physical exercise. His comorbid conditions include th e cognitive impairment, depression, malnutrition, dyslipidemia, cough without pneumonia, hypertension , insomnia, constipation, hypokalemia. Plan: Continue with physical, occupational, and speech therapy 3.5 hours, 5 of 7 days. Continue wit h electrolyte replacement with potassium. Continue managing diabetes with Glucophage, Mobic for arth ritic pain, Protonix for GE reflux, Cozaar for hypertension, Lasix for fluid management, Cymbalta for depression, Sinemet 25/100 three times daily for Parkinson disease. Does have a Tessalon Perles on board for cough and the Lipitor for dyslipidemia. Comorbidities That Are Impacting Rehabilitation: His comorbidities are stably managed and do not neg atively impact his rehabilitation. LB/MODL Voice ID: [id number] Report ID: [id number]
--- NOTE | 2024-04-23 13:34 | P.RH.PN ---
Estimated Length of Stay: 12 Expected Discharge Date: 04/27/24 Discharge Disposition Plan: Home Family Support: Yes Prison Goal: Mobility, Transfers, Self Care Vital Signs: Last Vital Signs Temp 97.3 F 04/23/24 08:00 Pulse 81 04/23/24 09:12 Resp 12 04/23/24 08:00 BP 153/99 H 04/23/24 09:12 Pulse Ox 95 04/23/24 08:00 Laboratory: Laboratory Last Values WBC 9.40 thou/uL (4.3-10.9) 04/22/24 07:00 RBC 4.82 M/uL (4.33-5.43) 04/22/24 07:00 Hgb 16.4 g/dL (13.6-17.9) 04/22/24 07:00 Hct 49.4 % (39.6-49.0) H 04/22/24 07:00 MCV 102.5 fL (80-100) H 04/22/24 07:00 MCH 34.0 pg (27.0-35.0) 04/22/24 07:00 MCHC 33.1 g/dL (32.0-36.0) 04/22/24 07:00 RDW 13.2 % (12.1-15.2) 04/22/24 07:00 Plt Count 262 thou/uL (152-406) 04/22/24 07:00 MPV 9.5 fL (7.6-11.3) 04/22/24 07:00 Neutrophils % 72.5 % (41.7-73.7) 04/22/24 07:00 Lymphocytes % 16.0 % (15.3-44.8) 04/22/24 07:00 Monocytes % 8.3 % (3.3-12.3) 04/22/24 07:00 Eosinophils % 2.5 % (0-4.4) 04/22/24 07:00 Basophils % 0.7 % (0-1.3) 04/22/24 07:00 Absolute Neutrophils 6.8 K/uL (1.8-8.0) 04/22/24 07:00 Absolute Lymphocytes 1.5 K/uL (0.7-4.9) 04/22/24 07:00 Absolute Monocytes 0.8 K/uL (0.1-1.3) 04/22/24 07:00 Absolute Eosinophils 0.2 K/uL (0-0.5) 04/22/24 07:00 Absolute Basophils 0.1 K/uL (0-0.5) 04/22/24 07:00 Sodium 141 mEq/L (136-145) 04/22/24 07:00 Potassium 3.4 mEq/L (3.5-5.1) L 04/22/24 07:00 Chloride 109 mEq/L (98-107) H 04/22/24 07:00 Carbon Dioxide 25 mEq/L (21-32) 04/22/24 07:00 Anion Gap 10.4 mEq/L (5.0-15.0) 04/22/24 07:00 BUN 21 mg/dL (7-18) H 04/22/24 07:00 Creatinine 0.77 mg/dL (0.70-1.30) 04/22/24 07:00 Est GFR (CKD-EPI) 89 ml/min (=/>90) L 04/22/24 07:00 Glucose 84 mg/dL (74-106) 04/22/24 07:00 POC Glucose 118 mg/dL (65-120) 04/23/24 08:24 Calcium 9.1 mg/dL (8.5-10.1) 04/22/24 07:00 Magnesium 2.0 mg/dL (1.6-2.4) 04/22/24 07:00 Albumin 3.0 g/dL (3.4-5.0) L 04/22/24 07:00 Prealbumin 15.8 mg/dL (20-40) L 04/22/24 07:00 Urine Color Yellow (Yellow) 04/19/24 10:50 Urine Clarity Clear (Clear) 04/19/24 10:50 Urine pH 5.5 (5.0-7.0) 04/19/24 10:50 Ur Specific [place] 1.021 (1.005-1.030) 04/19/24 10:50 Glucose (UA)(Auto) Negative (Negative) 04/19/24 10:50 Urine Ketones Negative (Negative) 04/19/24 10:50 Urine Blood Negative (Negative) 04/19/24 10:50 Urine Nitrite Negative (Negative) 04/19/24 10:50 Urine Bilirubin Negative (Negative) 04/19/24 10:50 Urine Urobilinogen Normal (Normal) 04/19/24 10:50 Ur Leukocyte Esterase Negative Yasmine/uL (Negative) 04/19/24 10:50 Urine RBC <5 /HPF (None Seen) 04/19/24 10:50 Urine WBC <5 /HPF (<5) 04/19/24 10:50 Ur Squamous Epith Cells <5 /HPF (None Seen) 04/19/24 10:50 Calcium Oxalate Crystal Few /HPF (None Seen) 04/19/24 10:50 Urine Bacteria None seen /HPF (<20) 04/19/24 10:50 Urine Mucus Slight /HPF (None Seen) 04/19/24 10:50 Urine Culture Reflexed Not needed 04/19/24 10:50 Urine Total Protein Negative (Negative) 04/19/24 10:50 Weight: 216 lb Wound Present: No Closed Surgical Incision Present: No Negative Pressure Wound Therapy Present: No Physician Update: Labs reviewed and are stable. Mild malnutrition. Incontinent with bowel and bladder. His Parkinson's disease symptoms are optimized with si nemet 25/100 mg twice daily. Improved with all therapy, including transfers, rolling walker mobilization and all ADLs. BIMS 15, SLUMS 18. Improved concentration and IADLs. Independent with bed mobility. Able to get off the floor. Walking 250' with CGA. Improved functional transfers. Summary: Patient's care plan and mcc goals have been reviewed and revised as necessary. Please see the Rehabilitation Signature page for all necessary signatures.
[2024-04-24] MEDS: OZEMPIC 2 MG SQ SCH (08:00)
[2024-04-25 06:39] VITALS: BP 153/83; TEMP 96.9
[2024-04-25] MEDS: HOME MED 1 EA UNK (Ozempic 1 MG) SQ SCH (09:00)
== END 2024-04-25 10:40 | disposition home health service (06) | DRG 57 ==
LOC: 5TH 11:00
PROVIDERS: ADMIT Psychiatry & Neurology Neurology with Special Qualifications in Child Neurology; ATTEND Psychiatry & Neurology Neurology with Special Qualifications in Child Neurology
DX: G20.A1 Parkinson's disease without dyskinesia, without mention of fluctuations (principal); E44.1 Mild protein-calorie malnutrition; F02.80 Dementia in other diseases classified elsewhere, unspecified severity, without behavioral disturbance, psychotic disturbance, mood disturbance, and anxiety; J44.9 Chronic obstructive pulmonary disease, unspecified; E11.9 Type 2 diabetes mellitus without complications; M19.90 Unspecified osteoarthritis, unspecified site; Z86.718 Personal history of other venous thrombosis and embolism; I50.9 Heart failure, unspecified; I10 Essential (primary) hypertension; E78.5 Hyperlipidemia, unspecified; G30.9 Alzheimer's disease, unspecified; E87.6 Hypokalemia; F32.A Depression, unspecified; Z68.33 Body mass index [BMI] 33.0-33.9, adult; G47.00 Insomnia, unspecified; K59.00 Constipation, unspecified
CPT/HCPCS: 36415; 80048; 81001; 82040; 82947; 83735; 84134; 85025; 92523; 97110; 97112; 97116; 97129; 97163; 97165; 97530; 97542; J7512